=== PATIENT | male | born 1955 | race Caucasian/White ===

== ENCOUNTER 2018-08-09 09:41 | Inpatient (IN) | payer OTHER ==
[2018-08-09 10:35] VITALS: BMI 29.0
--- NOTE | 2018-08-09 11:42 | HP ---
CIWA Score - CIWA Score Nausea/Vomitin-Mild Nausea/No Vomiting Muscle Tremors: 4-Moderate,w/Arms Extend Anxiety: 4-Mod. Anxious/Guarded Agitation: 4-Moderately Restless Paroxysmal Sweats: 1-Minimal Palms Moist Orientation: 0-Oriented Tacttile Disturbances: 0-None Auditory Disturbances: 0-None Visual Disturbances: 0-None Headache: 2-Mild CIWA-Ar Total Score: 16 Admission ROS S - HPI Chief Complaint: Alcohol withdrawal. Allergies/Adverse Reactions: Allergies Allergy/AdvReac Type Severity Reaction Status Date / Time No Known Allergies Allergy Verified 08/09/18 10:49 History of Present Illness: Drinking Alcohol since age 11. Recently released from care home in May, after one year, and started drinking again. Cocaine use began at age 19. Denies hx seizures or blackouts. Hx: HTN, DM, Increased cholesterol, acid reflux. Mental health issues: Insomnia , PTSD, Depression - Sees a MH provider at home. PDMP report negative. Exam Limitations: No Limitations - Ebola screening Have you traveled outside of the country in the last 21 days: No (N) Have you had contact with anyone from an Ebola affected area: No Have you been sick,other than usual withdrawal symptoms: No Do you have a fever: No - Review of Systems Constitutional: Diaphoresis, Changes in sleep (Diffculty fallingasleep) EENT: reports: Blurred Vision (Uses), Tearing (unrelated to situations or allergies), Dental Problems (Missing teeth) Respiratory: reports: No Symptoms reported Cardiac: reports: No Symptoms Reported GI: reports: Indigestion (acid reflux - takes omeprazole but doesn't remember the dose.) : reports: Frequency (3-4 x/night urination) Musculoskeletal: reports: No Symptoms Reported Integumentary: reports: No Symptoms Reported Neuro: reports: Headache, Tremors Endocrine: reports: No Symptoms Reported Hematology: reports: No Symptoms Reported Psychiatric: reports: Judgement Intact, Orientated x3, Agitated, Anxious, Depressed (Denies thoughts of harming self) Patient History - Patient Medical History Hx Asthma: No Hx Chronic Obstructive Pulmonary Disease (COPD): No Hx Cancer: No Hx Cardiac Disorders: No Hx Congestive Heart Failure: No Hx Hypertension: Yes (On meds ) Hx Hypercholesterolemia: Yes (On meds) Hx Pacemaker: No HX Cerebrovascular Accident: No Hx Seizures: No Hx Diabetes: Yes (On meds) Hx Gastrointestinal Disorders: No Hx Liver Disease: No Hx Sexually Transmitted Disorders: Yes (Gonorrhea 2007) Hx Renal Disease (ESRD): No Hx Thyroid Disease: No Hx Human Immunodeficiency Virus (HIV): No (2017) Hx Hepatitis C: No Hx Depression: Yes (Denies thoughts of harming self or others) Other Medical History: PTSD, anxiety - Patient Surgical History Past Surgical History: No - PPD History Previous Implant?: Yes Documented Results: Negative w/o proof Implanted On Prior [facility] Admission?: No PPD to be Administered?: Yes - Smoking Cessation Smoking history: Former smoker Have you smoked in the past 12 months: No Hx Chewing Tobacco Use: No Initiated information on smoking cessation: No - Substance & Tx. History Hx Alcohol Use: Yes Hx Substance Use: Yes Substance Use Type: Alcohol, Cocaine Hx Substance Use Treatment: Yes (detox, rehab) - Substances Abused Alcohol Route: Oral Frequency: Daily Amount used: 2/6PACKS Age of first use: 11 Date of Last Use: 08/09/18 Cocaine Route: Smoking Frequency: 1-2 times per week Amount used: $250 Age of first use: 19 Date of Last Use: 08/09/18 Admission Physical Exam BHS - Vital Signs Vital Signs: Vital Signs - 24 hr 08/09/18 10:33 Temperature 96.7 F L Pulse Rate 95 H Respiratory 19 Rate Blood Pressure 139/84 - Physical General Appearance: Yes: Mild Distress, Tremorous, Irritable, Sweating, Anxious HEENTM: Yes: EOMI, Hearing grossly Normal, Normocephalic, ERVIN Respiratory: Yes: Chest Non-Tender, Lungs Clear, Normal Breath Sounds, No Respiratory Distress Neck: Yes: No masses,lesions,Nodules, Supple Breast: Yes: Breast Exam Deferred Cardiology: Yes: Regular Rhythm, Regular Rate, S1, S2 Abdominal: Yes: Non Tender, Soft, Increased Bowel Sounds Genitourinary: Yes: Frequency (Denies blood or burning) Back: Yes: Normal Inspection Musculoskeletal: Yes: full range of Motion, Gait Steady Extremities: Yes: Normal Capillary Refill, Normal Range of Motion, Non-Tender, Tremors (upon outstretched hands) Neurological: Yes: financial planning adviser II-XII NML intact, Fully Oriented, Alert, Motor Strength 5/5, Normal Mood/Affect, Normal Response Integumentary: Yes: Normal Color, Dry, Warm, Other (Poison Nery like papular lesions on (R) arm) Lymphatic: Yes: Within Normal Limits - Diagnostic (1) Alcohol dependence with uncomplicated withdrawal Current Visit: Yes Status: Acute (2) Cocaine abuse Current Visit: Yes Status: Acute (3) Rash and nonspecific skin eruption Current Visit: Yes Status: Acute (4) Diabetes Current Visit: Yes Status: Acute (5) GERD (gastroesophageal reflux disease) Current Visit: Yes Status: Acute (6) Elevated cholesterol Current Visit: Yes Status: Acute Cleared for Admission [facility] - Detox or Rehab [facility] Level of Care: Medically Managed Detox Regimen/Protocol: Librium [facility] Breath Alcohol Content Breath Alcohol Content: 0.045 Urine Drug Screen - Results Drug Screen Negative: No Urine Drug Screen Results: RIN-Cocaine
[2018-08-09] MEDS ORDERED: MAGNESIUM CITRATE 300 ML BOTTLE PO PRN (12:16)
[2018-08-09] MEDS ORDERED: ACETAMINOPHEN 325 MG TABLET (FP) PO PRN (12:16)
[2018-08-09] MEDS ORDERED: chlordiazePOXIDE HCL 25 MG CAPSULE PO PRN (12:16)
[2018-08-09] MEDS ORDERED: MAG HYDROX/AL HYDROX/SIMETH 30 ML UNIT-DOSE CUP PO PRN (12:16)
[2018-08-09] MEDS ORDERED: chlordiazePOXIDE HCL 25 MG CAPSULE PO ONE (12:16)
[2018-08-09] MEDS ORDERED: guaiFENesin/D-METHORPHAN HB 10 ML UNIT-DOSE CUPS PO PRN (12:16)
[2018-08-09] MEDS ORDERED: MENTHOL/PHENOL 1 EACH UD MM PRN (12:16)
[2018-08-09] MEDS ORDERED: LOPERAMIDE HCL 2 MG CAPSULE PO PRN (12:16)
[2018-08-09] MEDS ORDERED: MAGNESIUM HYDROX 2400MG/30ML ORAL SUSPENSION 30 ML CUP PO PRN (12:16)
[2018-08-09] MEDS ORDERED: P-EPHED 60MG/TRIPROLIDI 2.5MG TABLET PO PRN (12:16)
[2018-08-09] MEDS ORDERED: IBUPROFEN 400 MG TABLET (FP) PO PRN (12:16)
[2018-08-09] MEDS: chlordiazePOXIDE HCL 25 MG CAPSULE PO SCH ×2 (17:09→22:29)
[2018-08-09] MEDS ORDERED: MELATONIN 5 MG TABLETS PO PRN (22:00)
[2018-08-09] MEDS: ATORVASTATIN CA 10 MG TABLET (FP) PO SCH (22:28)
[2018-08-09] MEDS: THIAMINE HCL 100 MG TABLET (FP) PO SCH (22:29)
[2018-08-10 00:49] LABS: URINE APPEARANCE SLCLOUDY; URINE BILIRUBIN NEGATIVE (<2.0 mg/dL); URINE COLOR LTYELLOW; URINE GLUCOSE (UA) NEGATIVE (NEGATIVE); URINE KETONE NEGATIVE (NEGATIVE); URINE LEUK ESTERASE NEGATIVE (NEGATIVE); URINE NITRITE NEGATIVE (NEGATIVE); URINE PROTEIN NEGATIVE (NEGATIVE); URINE UROBILINOGEN NEGATIVE mg/dL (0.2-1.0)
[2018-08-10 00:54] LABS: URINE MUCUS RARE
[2018-08-10] MEDS: chlordiazePOXIDE HCL 25 MG CAPSULE PO SCH ×4 (05:22→22:18)
[2018-08-10] MEDS: metFORMIN HCL 500 MG TABLET (FP) PO SCH (06:24)
--- NOTE | 2018-08-10 08:48 | CONSULT ---
[facility] Psychiatric Consult - Data Date of interview: 08/10/18 Admission source: [facility] Identifying data: Drinking Alcohol since age 11. Recently released from [facility] in May, after one year, and started drinking again. Cocaine use began at age 19. Denies hx seizures or blackouts. Substance Abuse History: Drinking Alcohol since age 11. Recently released from snf in [place], after one year, and started drinking again. Cocaine use began at age 19. Denies hx seizures or blackouts. Medical History: GERD, Hypercholesterolemia, HTN, DM-II Psychiatric History: Patient reports history of anxiety, insomnia, reports most recent psychiatric admission for safety at [facility]. Denies suicidal, homicidal history Physical/Sexual Abuse/Trauma History: Denies Additional Comment: Remerone 15mg po qhs. Vistaril 50mg po qhs Mental Status Exam - Mental Status Exam Alert and Oriented to: Person Cognitive Function: Fair Patient Appearance: Unkempt Mood: Sad Affect: Flat Patient Behavior: Sedated Speech Pattern: Delayed Voice Loudness: Mildly Soft/Quiet Thought Process: Circumstantial Thought Disorder: Being Controlled Hallucinations: Denies Suicidal Ideation: Denies Homicidal Ideation: Denies Insight/Judgement: Fair Sleep: Difficulty falling asleep Appetite: Weight gain Muscle strength/Tone: Mild Hypotonicity Gait/Station: Shuffling Additional Comments: Remerone 15mg po qhs. Vistaril 50mg po qhs Psychiatric Findings - Problem List ([place] 1, 2,3) (1) Alcohol-induced anxiety disorder Current Visit: Yes Status: Acute (2) Alcohol dependence with uncomplicated withdrawal Current Visit: Yes Status: Acute (3) Diabetes Current Visit: Yes Status: Acute Qualifiers: Diabetes mellitus type: type 2 Diabetes mellitus complication status: with hyperglycemia (4) Cocaine abuse Current Visit: Yes Status: Chronic (5) Elevated cholesterol Current Visit: Yes Status: Chronic (6) GERD (gastroesophageal reflux disease) Current Visit: Yes Status: Chronic Qualifiers: Esophagitis presence: esophagitis presence not specified Qualified Code(s) : K21.9 - Gastro-esophageal reflux disease without esophagitis - Initial Treatment Plan Initial Treatment Plan: Remerone 15mg po qhs. Vistaril 50mg po qhs
--- NOTE | 2018-08-10 10:02 | EKG ---
Test Reason : Blood Pressure : / mmHG Vent. Rate : 089 BPM Atrial Rate : 089 BPM P-R Int : 154 ms QRS Dur : 078 ms QT Int : 368 ms P-R-T Axes : 061 073 048 degrees QTc Int : 447 ms NORMAL SINUS RHYTHM NORMAL ECG NO PREVIOUS ECGS AVAILABLE Confirmed by RANJIT MEDEL MD ([id number]) on 08/10/2018 10:02:24 AM Referred By: Confirmed By:RANJIT MEDEL MD
[2018-08-10] MEDS: ASPIRIN 81 MG CHEWABLE TABLETS PO SCH (10:17)
[2018-08-10] MEDS: PRENATAL VITAMINS W/ FOLIC ACID TABLET (FP) PO SCH (10:17)
[2018-08-10] MEDS: PANTOPRAZOLE 20 MG TABLET (FP) PO SCH (10:17)
[2018-08-10 10:33] LABS: HEMATOCRIT 38.9 % (35.4-49); HEMOGLOBIN 12.6 GM/dL (11.7-16.9); MCH 24.8 pg (25.7-33.7); MCHC 32.4 g/dl (32.0-35.9); MEAN CELL VOLUME 76.5 fl (80-96); MEAN PLT VOLUME 9.4 fl (7.5-11.1); PLATELET COUNT 177 K/MM3 (134-434); RBC 5.08 M/mm3 (4.00-5.60)
[2018-08-10 11:05] LABS: CHLORIDE 107 mmol/L (98-107); POTASSIUM 4.1 mmol/L (3.5-5.1); SODIUM 143 mmol/L (136-145)
[2018-08-10 11:24] LABS: ALBUMIN 3.5 g/dl (3.4-5.0); ALK PHOS 84 U/L (45-117); ANION GAP 9 MMOL/L (8-16); BLOOD UREA NITROGEN 14 mg/dL (7-18); CALCIUM 8.4 mg/dL (8.5-10.1); CO2 27 mmol/L (21-32); GLUCOSE,RANDOM 103 mg/dL (74-106); SGOT/AST 42 U/L (15-37); SGPT/ALT 71 U/L (13-61); TOT PROT 6.4 g/dl (6.4-8.2)
--- NOTE | 2018-08-10 17:34 | PN ---
[facility] CIWA - CIWA Score Nausea/Vomitin-Mild Nausea/No Vomiting Muscle Tremors: 3 Anxiety: 4-Mod. Anxious/Guarded Agitation: 3 Paroxysmal Sweats: 1-Minimal Palms Moist Orientation: 0-Oriented Tacttile Disturbances: 1-Very Mild Itch/Numbness Auditory Disturbances: 0-None Visual Disturbances: 0-None Headache: 0-None Present CIWA-Ar Total Score: 13 BHS Progress Note (SOAP) Subjective: sweat tremor anxiety restlessness trouble sleep at night Objective: 08/10/18 17:34 Vital Signs Temperature 97.3 F L 08/10/18 13:11 Pulse Rate 77 08/10/18 13:11 Respiratory Rate 18 08/10/18 13:11 Blood Pressure 119/66 08/10/18 13:11 O2 Sat by Pulse Oximetry (%) Laboratory Last Values WBC 8.0 K/mm3 (4.0-10.0) 08/10/18 08:00 RBC 5.08 M/mm3 (4.00-5.60) 08/10/18 08:00 Hgb 12.6 GM/dL (11.7-16.9) 08/10/18 08:00 Hct 38.9 % (35.4-49) 08/10/18 08:00 MCV 76.5 fl (80-96) L 08/10/18 08:00 MCH 24.8 pg (25.7-33.7) L 08/10/18 08:00 MCHC 32.4 g/dl (32.0-35.9) 08/10/18 08:00 RDW 15.0 % (11.9-15.9) 08/10/18 08:00 Plt Count 177 K/MM3 (134-434) 08/10/18 08:00 MPV 9.4 fl (7.5-11.1) 08/10/18 08:00 Sodium 143 mmol/L (136-145) 08/10/18 08:00 Potassium 4.1 mmol/L (3.5-5.1) 08/10/18 08:00 Chloride 107 mmol/L (98-107) 08/10/18 08:00 Carbon Dioxide 27 mmol/L (21-32) 08/10/18 08:00 Anion Gap 9 MMOL/L (8-16) 08/10/18 08:00 BUN 14 mg/dL (7-18) 08/10/18 08:00 Creatinine 1.0 mg/dL (0.55-1.3) 08/10/18 08:00 Creat Clearance w eGFR > 60 (>60) 08/10/18 08:00 POC Glucometer 124 UNITS (80-120) 08/10/18 16:32 Random Glucose 103 mg/dL (74-106) 08/10/18 08:00 Calcium 8.4 mg/dL (8.5-10.1) L 08/10/18 08:00 Total Bilirubin 1.0 mg/dL (0.2-1.0) 08/10/18 08:00 AST 42 U/L (15-37) H 08/10/18 08:00 ALT 71 U/L (13-61) H 08/10/18 08:00 Alkaline Phosphatase 84 U/L (45-117) 08/10/18 08:00 Total Protein 6.4 g/dl (6.4-8.2) 08/10/18 08:00 Albumin 3.5 g/dl (3.4-5.0) 08/10/18 08:00 Urine Color Ltyellow 08/09/18 23:30 Urine Appearance Slcloudy 08/09/18 23:30 Urine pH 6.0 (5.0-8.0) 08/09/18 23:30 Ur Specific [place] 1.015 (1.001-1.035) 08/09/18 23:30 Urine Protein Negative (NEGATIVE) 08/09/18 23:30 Urine Glucose (UA) Negative (NEGATIVE) 08/09/18 23:30 Urine Ketones Negative (NEGATIVE) 08/09/18 23:30 Urine Blood 1+ (NEGATIVE) H 08/09/18 23:30 Urine Nitrite Negative (NEGATIVE) 08/09/18 23:30 Urine Bilirubin Negative (<2.0 mg/dL) 08/09/18 23:30 Urine Urobilinogen Negative mg/dL (0.2-1.0) 08/09/18 23:30 Ur Leukocyte Esterase Negative (NEGATIVE) 08/09/18 23:30 Urine WBC (Auto) 4 /hpf (3-5) 08/09/18 23:30 Urine RBC (Auto) 1 /hpf (0-3) 08/09/18 23:30 Urine Mucus Rare 08/09/18 23:30 RPR Titer Nonreactive (NONREACTIVE) 08/10/18 08:00 lab noted Assessment: 08/10/18 17:35 withdrawal sx Plan: continue detox
[2018-08-10] MEDS: ATORVASTATIN CA 10 MG TABLET (FP) PO SCH (22:18)
[2018-08-10] MEDS: MIRTAZAPINE 15 MG TABLET (FP) PO SCH (22:18)
[2018-08-10] MEDS: hydrOXYzine PAMOATE 50 MG CAPSULE (FP) PO SCH (22:18)
[2018-08-10] MEDS: THIAMINE HCL 100 MG TABLET (FP) PO SCH (22:18)
[2018-08-11] MEDS: metFORMIN HCL 500 MG TABLET (FP) PO SCH (07:32)
[2018-08-11] MEDS: chlordiazePOXIDE HCL 25 MG CAPSULE PO SCH ×2 (07:37→10:52)
[2018-08-11] MEDS: ASPIRIN 81 MG CHEWABLE TABLETS PO SCH (10:51)
[2018-08-11] MEDS: PANTOPRAZOLE 20 MG TABLET (FP) PO SCH (10:51)
[2018-08-11] MEDS: PRENATAL VITAMINS W/ FOLIC ACID TABLET (FP) PO SCH (10:52)
--- NOTE | 2018-08-11 16:31 | PN ---
S CIWA - CIWA Score Nausea/Vomitin-No Nausea/No Vomiting Muscle Tremors: 3 Anxiety: 2 Agitation: 2 Paroxysmal Sweats: 1-Minimal Palms Moist Orientation: 0-Oriented Tacttile Disturbances: 1-Very Mild Itch/Numbness Auditory Disturbances: 0-None Visual Disturbances: 0-None Headache: 1-Very Mild CIWA-Ar Total Score: 10 S Progress Note (SOAP) Subjective: sweat tremor restlessness Objective: 08/11/18 16:30 Vital Signs Temperature 98.2 F 08/11/18 13:55 Pulse Rate 121 H 08/11/18 13:55 Respiratory Rate 18 08/11/18 13:55 Blood Pressure 139/70 08/11/18 13:55 O2 Sat by Pulse Oximetry (%) Laboratory Last Values WBC 8.0 K/mm3 (4.0-10.0) 08/10/18 08:00 RBC 5.08 M/mm3 (4.00-5.60) 08/10/18 08:00 Hgb 12.6 GM/dL (11.7-16.9) 08/10/18 08:00 Hct 38.9 % (35.4-49) 08/10/18 08:00 MCV 76.5 fl (80-96) L 08/10/18 08:00 MCH 24.8 pg (25.7-33.7) L 08/10/18 08:00 MCHC 32.4 g/dl (32.0-35.9) 08/10/18 08:00 RDW 15.0 % (11.9-15.9) 08/10/18 08:00 Plt Count 177 K/MM3 (134-434) 08/10/18 08:00 MPV 9.4 fl (7.5-11.1) 08/10/18 08:00 Sodium 143 mmol/L (136-145) 08/10/18 08:00 Potassium 4.1 mmol/L (3.5-5.1) 08/10/18 08:00 Chloride 107 mmol/L (98-107) 08/10/18 08:00 Carbon Dioxide 27 mmol/L (21-32) 08/10/18 08:00 Anion Gap 9 MMOL/L (8-16) 08/10/18 08:00 BUN 14 mg/dL (7-18) 08/10/18 08:00 Creatinine 1.0 mg/dL (0.55-1.3) 08/10/18 08:00 Creat Clearance w eGFR > 60 (>60) 08/10/18 08:00 POC Glucometer 104 UNITS (80-120) 08/11/18 07:31 Random Glucose 103 mg/dL (74-106) 08/10/18 08:00 Calcium 8.4 mg/dL (8.5-10.1) L 08/10/18 08:00 Total Bilirubin 1.0 mg/dL (0.2-1.0) 08/10/18 08:00 AST 42 U/L (15-37) H 08/10/18 08:00 ALT 71 U/L (13-61) H 08/10/18 08:00 Alkaline Phosphatase 84 U/L (45-117) 08/10/18 08:00 Total Protein 6.4 g/dl (6.4-8.2) 08/10/18 08:00 Albumin 3.5 g/dl (3.4-5.0) 08/10/18 08:00 Urine Color Ltyellow 08/09/18 23:30 Urine Appearance Slcloudy 08/09/18 23:30 Urine pH 6.0 (5.0-8.0) 08/09/18 23:30 Ur Specific [place] 1.015 (1.001-1.035) 08/09/18 23:30 Urine Protein Negative (NEGATIVE) 08/09/18 23:30 Urine Glucose (UA) Negative (NEGATIVE) 08/09/18 23:30 Urine Ketones Negative (NEGATIVE) 08/09/18 23:30 Urine Blood 1+ (NEGATIVE) H 08/09/18 23:30 Urine Nitrite Negative (NEGATIVE) 08/09/18 23:30 Urine Bilirubin Negative (<2.0 mg/dL) 08/09/18 23:30 Urine Urobilinogen Negative mg/dL (0.2-1.0) 08/09/18 23:30 Ur Leukocyte Esterase Negative (NEGATIVE) 08/09/18 23:30 Urine WBC (Auto) 4 /hpf (3-5) 08/09/18 23:30 Urine RBC (Auto) 1 /hpf (0-3) 08/09/18 23:30 Urine Mucus Rare 08/09/18 23:30 RPR Titer Nonreactive (NONREACTIVE) 08/10/18 08:00 lab noted Assessment: 08/11/18 16:30 withdrawal sx Plan: continue detox
[2018-08-11] MEDS: chlordiazePOXIDE 5 MG CAPSULE PO SCH ×2 (17:33→22:26)
[2018-08-11] MEDS: THIAMINE HCL 100 MG TABLET (FP) PO SCH (22:26)
[2018-08-11] MEDS: hydrOXYzine PAMOATE 50 MG CAPSULE (FP) PO SCH (22:27)
[2018-08-11] MEDS: ATORVASTATIN CA 10 MG TABLET (FP) PO SCH (22:27)
[2018-08-11] MEDS: MIRTAZAPINE 15 MG TABLET (FP) PO SCH (22:27)
[2018-08-12] MEDS: chlordiazePOXIDE 5 MG CAPSULE PO SCH ×2 (06:00→10:04)
[2018-08-12] MEDS: metFORMIN HCL 500 MG TABLET (FP) PO SCH (08:00)
[2018-08-12] MEDS: PRENATAL VITAMINS W/ FOLIC ACID TABLET (FP) PO SCH (10:03)
[2018-08-12] MEDS: PANTOPRAZOLE 20 MG TABLET (FP) PO SCH (10:04)
[2018-08-12] MEDS: ASPIRIN 81 MG CHEWABLE TABLETS PO SCH (10:04)
--- NOTE | 2018-08-12 13:36 | PN ---
S Progress Note (SOAP) Subjective: C/o mild tremors, otherwise I'm feeling a lot better. Objective: A&O x 3. Mild tremors felt in hands. Vital Signs 08/12/18 08/12/18 09:47 14:15 Temperature 97.1 F L 98.2 F Pulse Rate 84 123 H Respiratory 16 18 Rate Blood Pressure 136/75 135/83 Lab Results WBC 8.0 K/mm3 (4.0-10.0) 08/10/18 08:00 RBC 5.08 M/mm3 (4.00-5.60) 08/10/18 08:00 Hgb 12.6 GM/dL (11.7-16.9) 08/10/18 08:00 Hct 38.9 % (35.4-49) 08/10/18 08:00 MCV 76.5 fl (80-96) L 08/10/18 08:00 MCHC 32.4 g/dl (32.0-35.9) 08/10/18 08:00 RDW 15.0 % (11.9-15.9) 08/10/18 08:00 Plt Count 177 K/MM3 (134-434) 08/10/18 08:00 Sodium 143 mmol/L (136-145) 08/10/18 08:00 Potassium 4.1 mmol/L (3.5-5.1) 08/10/18 08:00 Chloride 107 mmol/L (98-107) 08/10/18 08:00 Carbon Dioxide 27 mmol/L (21-32) 08/10/18 08:00 Anion Gap 9 MMOL/L (8-16) 08/10/18 08:00 BUN 14 mg/dL (7-18) 08/10/18 08:00 Creatinine 1.0 mg/dL (0.55-1.3) 08/10/18 08:00 Random Glucose 103 mg/dL (74-106) 08/10/18 08:00 Calcium 8.4 mg/dL (8.5-10.1) L 08/10/18 08:00 Labs reviewed. Assessment: Withdrawal symptoms. Plan: Continue detox
[2018-08-12] MEDS: chlordiazePOXIDE HCL 10 MG CAPSULE PO SCH ×2 (18:27→22:30)
[2018-08-12] MEDS: ATORVASTATIN CA 10 MG TABLET (FP) PO SCH (22:29)
[2018-08-12] MEDS: THIAMINE HCL 100 MG TABLET (FP) PO SCH (22:29)
[2018-08-12] MEDS: hydrOXYzine PAMOATE 50 MG CAPSULE (FP) PO SCH (22:30)
[2018-08-12] MEDS: MIRTAZAPINE 15 MG TABLET (FP) PO SCH (22:30)
[2018-08-13] MEDS: chlordiazePOXIDE HCL 10 MG CAPSULE PO SCH ×2 (06:35→11:06)
[2018-08-13] MEDS: metFORMIN HCL 500 MG TABLET (FP) PO SCH (07:55)
[2018-08-13] MEDS: PRENATAL VITAMINS W/ FOLIC ACID TABLET (FP) PO SCH (11:04)
[2018-08-13] MEDS: PANTOPRAZOLE 20 MG TABLET (FP) PO SCH (11:04)
[2018-08-13] MEDS: ASPIRIN 81 MG CHEWABLE TABLETS PO SCH (11:04)
[2018-08-13 13:49] VITALS: BP 120/60; PULSE 77; TEMP 97.5
--- NOTE | 2018-08-13 16:43 | DS ---
[facility] Detox Discharge Summary Admission Date: 08/09/18 Discharge Date: 08/13/18 - History Present History: Alcohol Dependence - Physical Exam Results Vital Signs: Vital Signs Temperature 97.5 F L 08/13/18 13:42 Pulse Rate 77 08/13/18 13:42 Respiratory Rate 18 08/13/18 13:42 Blood Pressure 120/60 08/13/18 13:42 O2 Sat by Pulse Oximetry (%) Pertinent Admission Physical Exam Findings: alcohol withdrawal sx Vital Signs Temperature 97.5 F L 08/13/18 13:42 Pulse Rate 77 08/13/18 13:42 Respiratory Rate 18 08/13/18 13:42 Blood Pressure 120/60 08/13/18 13:42 O2 Sat by Pulse Oximetry (%) Laboratory Last Values WBC 8.0 K/mm3 (4.0-10.0) 08/10/18 08:00 RBC 5.08 M/mm3 (4.00-5.60) 08/10/18 08:00 Hgb 12.6 GM/dL (11.7-16.9) 08/10/18 08:00 Hct 38.9 % (35.4-49) 08/10/18 08:00 MCV 76.5 fl (80-96) L 08/10/18 08:00 MCH 24.8 pg (25.7-33.7) L 08/10/18 08:00 MCHC 32.4 g/dl (32.0-35.9) 08/10/18 08:00 RDW 15.0 % (11.9-15.9) 08/10/18 08:00 Plt Count 177 K/MM3 (134-434) 08/10/18 08:00 MPV 9.4 fl (7.5-11.1) 08/10/18 08:00 Sodium 143 mmol/L (136-145) 08/10/18 08:00 Potassium 4.1 mmol/L (3.5-5.1) 08/10/18 08:00 Chloride 107 mmol/L (98-107) 08/10/18 08:00 Carbon Dioxide 27 mmol/L (21-32) 08/10/18 08:00 Anion Gap 9 MMOL/L (8-16) 08/10/18 08:00 BUN 14 mg/dL (7-18) 08/10/18 08:00 Creatinine 1.0 mg/dL (0.55-1.3) 08/10/18 08:00 Creat Clearance w eGFR > 60 (>60) 08/10/18 08:00 POC Glucometer 121 UNITS (80-120) 08/13/18 06:39 Random Glucose 103 mg/dL (74-106) 08/10/18 08:00 Calcium 8.4 mg/dL (8.5-10.1) L 08/10/18 08:00 Total Bilirubin 1.0 mg/dL (0.2-1.0) 08/10/18 08:00 AST 42 U/L (15-37) H 08/10/18 08:00 ALT 71 U/L (13-61) H 08/10/18 08:00 Alkaline Phosphatase 84 U/L (45-117) 08/10/18 08:00 Total Protein 6.4 g/dl (6.4-8.2) 08/10/18 08:00 Albumin 3.5 g/dl (3.4-5.0) 08/10/18 08:00 Urine Color Ltyellow 08/09/18 23:30 Urine Appearance Slcloudy 08/09/18 23:30 Urine pH 6.0 (5.0-8.0) 08/09/18 23:30 Ur Specific [place] 1.015 (1.001-1.035) 08/09/18 23:30 Urine Protein Negative (NEGATIVE) 08/09/18 23:30 Urine Glucose (UA) Negative (NEGATIVE) 08/09/18 23:30 Urine Ketones Negative (NEGATIVE) 08/09/18 23:30 Urine Blood 1+ (NEGATIVE) H 08/09/18 23:30 Urine Nitrite Negative (NEGATIVE) 08/09/18 23:30 Urine Bilirubin Negative (<2.0 mg/dL) 08/09/18 23:30 Urine Urobilinogen Negative mg/dL (0.2-1.0) 08/09/18 23:30 Ur Leukocyte Esterase Negative (NEGATIVE) 08/09/18 23:30 Urine WBC (Auto) 4 /hpf (3-5) 08/09/18 23:30 Urine RBC (Auto) 1 /hpf (0-3) 08/09/18 23:30 Urine Mucus Rare 08/09/18 23:30 RPR Titer Nonreactive (NONREACTIVE) 08/10/18 08:00 lab noted - Treatment Hospital Course: Detox Protocol Followed, Detoxed Safely, Responded well, Discharged Condition Good, Rehab Referral Accepted Patient has Accepted a Rehab Referral to: [facility] - Medication Discharge Medications: Ambulatory Orders Aspirin [Children's Aspirin] 81 mg PO DAILY 08/09/18 Omeprazole 20 mg PO DAILY 08/09/18 Mirtazapine [Remeron -] 15 mg PO HS #30 tablet 08/10/18 hydrOXYzine PAMOATE [Vistaril -] 50 mg PO HS #30 capsule 08/10/18 Atorvastatin Ca [Lipitor] 10 mg PO HS #30 tablet 08/13/18 Metformin HCl [Glucophage] 1,000 mg PO DAILY #30 tablet 08/13/18 - Diagnosis (1) Alcohol dependence with uncomplicated withdrawal Status: Acute (2) Diabetes Status: Chronic Qualifiers: Diabetes mellitus type: type 2 Diabetes mellitus complication status: with hyperglycemia (3) GERD (gastroesophageal reflux disease) Status: Chronic Qualifiers: Esophagitis presence: esophagitis presence not specified Qualified Code(s) : K21.9 - Gastro-esophageal reflux disease without esophagitis - AMA Did Patient Leave Against Medical Advice: No
== END 2018-08-13 15:00 | disposition other institution (70) | DRG 774 ==
LOC: YASAS 09:41 → Y6N 12:38
PROC: HZ2ZZZZ Detoxification Services for Substance Abuse Treatment (ICD-10-PCS; principal; 2018-08-09)
DX: F10.230 Alcohol dependence with withdrawal, uncomplicated (principal); F14.10 Cocaine abuse, uncomplicated; F10.280 Alcohol dependence with alcohol-induced anxiety disorder; F10.24 Alcohol dependence with alcohol-induced mood disorder; F41.9 Anxiety disorder, unspecified; F43.10 Post-traumatic stress disorder, unspecified; I10 Essential (primary) hypertension; E11.65 Type 2 diabetes mellitus with hyperglycemia; Z79.84 Long term (current) use of oral hypoglycemic drugs; E78.00 Pure hypercholesterolemia, unspecified; K21.9 Gastro-esophageal reflux disease without esophagitis; R21 Rash and other nonspecific skin eruption; Z86.19 Personal history of other infectious and parasitic diseases
CPT/HCPCS: 36415; 80053; 81003; 81015; 82962; 85027; 86593; 93005; 93010

== ENCOUNTER 2018-08-13 15:24 | Inpatient (IN) | payer OTHER ==
[2018-08-13] MEDS ORDERED: NICOTINE 14 MG/24 HOURS TOPICAL PATCH TD PRN (15:43)
[2018-08-13] MEDS ORDERED: NICOTINE POLACRILEX 2 MG GUM BUC PRN (15:43)
[2018-08-13] MEDS ORDERED: MAG HYDROX/AL HYDROX/SIMETH 30 ML UNIT-DOSE CUP PO PRN (15:43)
[2018-08-13] MEDS ORDERED: guaiFENesin/D-METHORPHAN HB 10 ML UNIT-DOSE CUPS PO PRN (15:43)
[2018-08-13] MEDS ORDERED: MAGNESIUM HYDROX 2400MG/30ML ORAL SUSPENSION 30 ML CUP PO PRN (15:43)
[2018-08-13] MEDS ORDERED: IBUPROFEN 400 MG TABLET (FP) PO PRN (15:43)
[2018-08-13] MEDS ORDERED: MENTHOL/PHENOL 1 EACH UD MM PRN (15:43)
[2018-08-13] MEDS ORDERED: ACETAMINOPHEN 325 MG TABLET (FP) PO PRN (15:43)
[2018-08-13] MEDS ORDERED: P-EPHED 60MG/TRIPROLIDI 2.5MG TABLET PO PRN (15:43)
[2018-08-13] MEDS ORDERED: MAGNESIUM CITRATE 300 ML BOTTLE PO PRN (15:43)
--- NOTE | 2018-08-13 15:43 | HP ---
[facility] Rehab Assess/Revision - Admission History Admitted to Rehab from: [facility] Date of Admission to Rehab: 08/13/18 - Findings Detox History & Physical reviewed: Yes Concur with findings: Yes Comments/Additional Findings: transferred from detox to rehab admission as per protocol Inpatient Rehab Admission - Initial Determination Are CD services needed?: Yes Free of communicable disease: Yes Not in need of hospitalization: Yes - Rehab Admission Criteria Previous failed treatment: Yes Poor recovery environment: Yes Comorbidities: Yes Lacks judgement: No Patient is meeting Inpatient Rehab admission criteria:: Yes
--- NOTE | 2018-08-13 19:46 | PN ---
Jean Progress Note Note: Psychiatric nurse practitioner lithopone charger note: Call received by RN requesting patient's medications. Chart reviewed. Dr. Magaña's note read and appreciated. Mirtzapine 15mg qhs + Vistaril 50mg qhs ordered.
[2018-08-13] MEDS: MIRTAZAPINE 15 MG TABLET (FP) PO SCH (21:47)
[2018-08-13] MEDS: hydrOXYzine PAMOATE 50 MG CAPSULE (FP) PO SCH (21:47)
[2018-08-13] MEDS: THIAMINE HCL 100 MG TABLET (FP) PO SCH (21:47)
[2018-08-13] MEDS: ATORVASTATIN CA 10 MG TABLET (FP) PO SCH (21:48)
[2018-08-13] MEDS ORDERED: MELATONIN 5 MG TABLETS PO PRN (22:00)
[2018-08-14] MEDS: metFORMIN HCL 500 MG TABLET (FP) PO SCH (06:31)
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
[2018-08-14] MEDS: PRENATAL VITAMINS W/ FOLIC ACID TABLET (FP) PO SCH (10:03)
[2018-08-14] MEDS: ASPIRIN 81 MG CHEWABLE TABLETS PO SCH (10:03)
[2018-08-14] MEDS: PANTOPRAZOLE 20 MG TABLET (FP) PO SCH (16:43)
[2018-08-14] MEDS: ATORVASTATIN CA 10 MG TABLET (FP) PO SCH (22:15)
[2018-08-14] MEDS: THIAMINE HCL 100 MG TABLET (FP) PO SCH (22:15)
[2018-08-14] MEDS: MIRTAZAPINE 15 MG TABLET (FP) PO SCH (22:15)
[2018-08-14] MEDS: hydrOXYzine PAMOATE 50 MG CAPSULE (FP) PO SCH (22:15)
[2018-08-15] MEDS: metFORMIN HCL 500 MG TABLET (FP) PO SCH (06:45)
[2018-08-15] MEDS: PRENATAL VITAMINS W/ FOLIC ACID TABLET (FP) PO SCH (10:07)
[2018-08-15] MEDS: LOPERAMIDE HCL 2 MG CAPSULE PO PRN (10:07)
[2018-08-15] MEDS: PANTOPRAZOLE 20 MG TABLET (FP) PO SCH (10:07)
[2018-08-15] MEDS: ASPIRIN 81 MG CHEWABLE TABLETS PO SCH (10:07)
[2018-08-15] MEDS: hydrOXYzine PAMOATE 50 MG CAPSULE (FP) PO SCH (22:20)
[2018-08-15] MEDS: ATORVASTATIN CA 10 MG TABLET (FP) PO SCH (22:20)
[2018-08-15] MEDS: THIAMINE HCL 100 MG TABLET (FP) PO SCH (22:20)
[2018-08-15] MEDS: MIRTAZAPINE 15 MG TABLET (FP) PO SCH (22:20)
[2018-08-16] MEDS: LOPERAMIDE HCL 2 MG CAPSULE PO PRN (01:49)
[2018-08-16] MEDS: metFORMIN HCL 500 MG TABLET (FP) PO SCH (07:24)
[2018-08-16 08:12] VITALS: BP 144/87; PULSE 113; TEMP 97.7
--- NOTE | 2018-08-16 08:33 | PN ---
[facility] Progress Note Note: ASKED TO SEE CLIENT FOR C/O WORSENING ABD PAIN. CLIENT REPORTS DIARRHEA X 2 DAYS NOW THAT IS PROGRESSIVELY GETTING WORSE WITH ABD PAIN/CRAMPS. REPORTS AT LEAST 15 EPISODES OF DIARRHEA ( UNWITNESSED BY STAFF)IN THE PAST 8 HOURS NOT RELIEVED WITH IMMODIUM. DENIES FEVER, CHILLS, SOB. GEN- CLIENT SEEN LYING IN BED IN MODERATE DISTRESS MOANING TOSSING AND TURNING IN BED REQUESTING TO GO TO THE HOSPITAL ABD- GROSSLY DISTENDED , HYPO ACTIVE BS WITH DIFFUSE ABD PAIN Last Vital Signs Temp Pulse Resp BP Pulse Ox 97.7 F 113 H 18 144/87 08/16/18 08:11 08/16/18 08:11 08/16/18 08:11 08/16/18 08:11 LABS FROM DETOX NOTED ABD PAIN 63 Y.O. MALE WITH HX/O DM, GERD, ALCOHOL AND COCAINE DEPENDENCE HERE FOR INPATIENT REHAB AFTER COMPLETING DETOX P- TRANSFER TO [facility] ER FOR EVAL CASE D/W- ENDORSED TO DR. MAGANA
[2018-08-16] MEDS: ASPIRIN 81 MG CHEWABLE TABLETS PO SCH (10:13)
[2018-08-16] MEDS: PRENATAL VITAMINS W/ FOLIC ACID TABLET (FP) PO SCH (10:13)
[2018-08-16] MEDS: PANTOPRAZOLE 20 MG TABLET (FP) PO SCH (10:13)
== END 2018-08-16 15:20 | disposition short-term general hospital (02) | DRG 772 ==
LOC: YASAS 15:24 → Y3W 15:25
PROVIDERS: ADMIT Psychiatry & Neurology Psychiatry; ATTEND Psychiatry & Neurology Psychiatry
PROC: HZ42ZZZ Group Counseling for Substance Abuse Treatment, Cognitive-Behavioral (ICD-10-PCS; principal; 2018-08-13)
DX: F10.20 Alcohol dependence, uncomplicated (principal); F33.1 Major depressive disorder, recurrent, moderate; F43.10 Post-traumatic stress disorder, unspecified; E11.65 Type 2 diabetes mellitus with hyperglycemia; E78.5 Hyperlipidemia, unspecified; I10 Essential (primary) hypertension; K21.9 Gastro-esophageal reflux disease without esophagitis; Z59.0 Homelessness; Z79.84 Long term (current) use of oral hypoglycemic drugs
CPT/HCPCS: 82962

== ENCOUNTER 2018-08-16 08:55 | Inpatient (IN) | payer OTHER ==
[2018-08-16 09:03] VITALS: BMI 29.2
[2018-08-16] MEDS ORDERED: SODIUM CHLORIDE 1,000 ML IV STA ×5 (09:34→16:46)
[2018-08-16 10:02] LABS: BASO % 0.4 % (0-2.0); EOS % 0.3 % (0-4.5); HEMATOCRIT 48.6 % (35.4-49); HEMOGLOBIN 15.5 GM/dL (11.7-16.9); LYMPH % 8.4 % (8-40); MCH 24.7 pg (25.7-33.7); MCHC 31.9 g/dl (32.0-35.9); MEAN CELL VOLUME 77.3 fl (80-96); MEAN PLT VOLUME 9.6 fl (7.5-11.1); MONO % 3.6 % (3.8-10.2); NEUT % 87.3 % (42.8-82.8); PLATELET COUNT 263 K/MM3 (134-434); RDW 15.3 % (11.9-15.9); WHITE BLOOD COUNT 16.1 K/mm3 (4.0-10.0)
--- NOTE | 2018-08-16 10:18 | PDOC ---
History of Present Illness <Dick Leija - Last Filed: 08/16/18 11:49> - General History Source: Patient Exam Limitations: No Limitations - History of Present Illness Travel History: No Initial Comments: 08/16/18 10:18 63-year-old male with history of heroin, alcohol use, hypertension and recent incarceration presents the emergency room with complaints of generalized abdominal pain for the past few days worsening in severity associated brown watery diarrhea for the past 2 days. Patient currently completed detox program at [facility]. He denies fever, chills, nausea, vomiting, headache, chest pain or shortness of breath. Timing/Duration: reports: constant, getting worse Quality: reports: moderate, cramping, sharpness Abdominal Pain Onset Location: reports: generalized abdomen Pain Radiation: reports: no radiation Activities at Onset: reports: none Treatment Prior to Arrive: improves with: analgesics Aggravating Factors: improves with: None Alleviating Factors: improves with: None <Bernie Ham - Last Filed: 08/16/18 13:30> - General Chief Complaint: Pain Stated Complaint: ABD PAIN Time Seen by Provider: 08/16/18 09:03 Past History <Dick Leija - Last Filed: 08/16/18 11:49> - Travel Close contact w/someone who was outside of country & ill: No - Past Medical History Asthma: No Cancer: No Cardiac Disorders: No CVA: No COPD: No CHF: No Diabetes: Yes GI Disorders: No Disorders: No HTN: Yes Hypercholesterolemia: Yes (On meds) Kidney Stones: No Liver Disease: No Seizures: No Thyroid Disease: No - Reproductive History Testicular Surgery: No - Suicide/Smoking/Psychosocial Hx Smoking History: Unknown if ever smoked Have you smoked in the past 12 months: No Hx Alcohol Use: No Drug/Substance Use Hx: No Substance Use Type: Alcohol (Started drinking beer at age 11, consumes 2x 6pk of beer daily. Last drank on 08/09/18), Cocaine (Started smoking crack cocaine at age 19, consumes $250 worth 1-2 times weekly. Last smoked on 08/09/18) Hx Substance Use Treatment: Yes (2 previous inpt detox & 3 inpt rehab admissions ) Patient Lives Alone: No <Bernie Ham - Last Filed: 08/16/18 13:30> - Past Medical History Allergies/Adverse Reactions: Allergies Allergy/AdvReac Type Severity Reaction Status Date / Time No Known Allergies Allergy Verified 08/16/18 08:58 Home Medications: Ambulatory Orders Aspirin [Children's Aspirin] 81 mg PO DAILY 08/09/18 Omeprazole 20 mg PO DAILY 08/09/18 Mirtazapine [Remeron -] 15 mg PO HS #30 tablet 08/10/18 hydrOXYzine PAMOATE [Vistaril -] 50 mg PO HS #30 capsule 08/10/18 Atorvastatin Ca [Lipitor] 10 mg PO HS #30 tablet 08/13/18 Metformin HCl [Glucophage] 1,000 mg PO DAILY #30 tablet 08/13/18 Abd/GI Specific PMHX - Complaint Specific PMHX Hepatitis: No Pancreatitis: No <Bernie Ham - Last Filed: 08/16/18 13:30> Review of Systems - Review of Systems Able to Perform ROS?: No Constitutional: No: Symptoms Reported HEENTM: No: Symptoms Reported Respiratory: No: Symptoms reported Cardiac (ROS): No: Symptoms Reported ABD/GI: Yes: Abdominal Distended, Diarrhea, Poor Appetite, Poor Fluid Intake, Abdominal cramping. No: Nausea, Vomiting Integumentary: No: Symptoms Reported Neurological: No: Symptoms reported Hematologic/Lymphatic: No: Symptoms Reported <Bernie Ham - Last Filed: 08/16/18 13:30> *Physical Exam - Vital Signs Last Vital Signs Temp Pulse Resp BP Pulse Ox 99 F 113 H 19 121/82 96 08/16/18 09:15 08/16/18 10:05 08/16/18 10:05 08/16/18 10:05 08/16/18 10:05 <Dick Leija - Last Filed: 08/16/18 11:49> - Vital Signs Last Vital Signs Temp Pulse Resp BP Pulse Ox 99 F 113 H 19 121/82 96 08/16/18 09:15 08/16/18 10:05 08/16/18 10:05 08/16/18 10:05 08/16/18 10:05 - Physical Exam General Appearance: Yes: Nourished, Appropriately Dressed. No: Apparent Distress HEENT: positive: EOMI, ERVIN, TMs Normal, Pharynx Normal. negative: Pale Conjunctivae Neck: positive: Supple Respiratory/Chest: positive: Lungs Clear, Normal Breath Sounds. negative: Respiratory Distress, Accessory Muscle Use Cardiovascular: positive: Regular Rhythm, Tachycardia. negative: Murmur Gastrointestinal/Abdominal: positive: Soft, Decreased BS (4), Distended, Tenderness ( generalized) Musculoskeletal: negative: CVA Tenderness Extremity: positive: Normal Capillary Refill. negative: Pedal Edema Integumentary: positive: Normal Color, Warm, Moist Neurologic: positive: Motor Strength 5/5 <Bernie Ham - Last Filed: 08/16/18 13:30> Heart Score/ECG Review - History History: Slightly suspicious - Electrocardiogram EKG: Normal - Age Age: 45-65 - Risk Factors Risk Factors Heart Score: Yes Hx Hypertension, Yes Smoking History Based on the list above the patient has:: 1-2 risk factors - Troponin Troponin: </= normal limit - Score Heart Score - Total: 2 - ECG Intrepretation Rhythm: Regular Rhythm (sinus tachycardia at 113.[place] ac. Inverted T waves in lead 3. No previous for comparison) <Bernie Ham - Last Filed: 08/16/18 13:30> ED Treatment Course - LABORATORY CBC & Chemistry Diagram: 08/16/18 09:45 08/16/18 09:45 - ADDITIONAL ORDERS Additional order review: Laboratory Results 08/16/18 08/16/18 08/16/18 09:45 09:45 09:45 Sodium 142 Potassium 4.9 Chloride 107 Carbon Dioxide 25 Anion Gap 11 BUN 16 Creatinine 1.5 H Creat Clearance w eGFR 47.42 Random Glucose 155 H Lactic Acid 3.3 H* Calcium 10.0 Magnesium 1.8 Total Bilirubin 0.8 AST 100 H ALT 139 H Alkaline Phosphatase 124 H Creatine Kinase Cancelled 101 Troponin I Cancelled < 0.02 Total Protein 8.7 H Albumin 4.6 Lipase 90 08/16/18 09:45 RBC 6.30 H MCV 77.3 L MCHC 31.9 L RDW 15.3 MPV 9.6 Neutrophils % 87.3 H Lymphocytes % 8.4 Monocytes % 3.6 L Eosinophils % 0.3 Basophils % 0.4 - RADIOLOGY Radiology Studies Ordered: Category Date Time Status ABDOMEN & PELVIS CT WITH CONTR [CT] Stat CT Scan 08/16/18 10:07 Ordered - Medications Given in the ED: ED Medications Discontinued Medications Generic Name Dose Route Start Last Admin Trade Name Freq PRN Reason Stop Dose Admin Sodium Chloride 1,000 mls @ 1,000 mls/hr 08/16/18 09:34 08/16/18 09:37 Normal Saline - IV 08/16/18 10:33 1,000 mls/hr ASDIR STA Administration Ondansetron HCl 4 mg 08/16/18 10:47 08/16/18 11:04 Zofran Injection IVPUSH 08/16/18 10:48 4 mg ONCE ONE Administration <Dick Leija - Last Filed: 08/16/18 11:49> - LABORATORY CBC & Chemistry Diagram: 08/16/18 09:45 08/16/18 09:45 - ADDITIONAL ORDERS Additional order review: Laboratory Results 08/16/18 09:45 Creatine Kinase Cancelled Troponin I Cancelled 08/16/18 09:45 RBC 6.30 H MCV 77.3 L MCHC 31.9 L RDW 15.3 MPV 9.6 Neutrophils % 87.3 H Lymphocytes % 8.4 Monocytes % 3.6 L Eosinophils % 0.3 Basophils % 0.4 - RADIOLOGY Radiology Studies Ordered: Category Date Time Status ABDOMEN & PELVIS CT WITH CONTR [CT] Stat CT Scan 08/16/18 10:07 Ordered ABDOMEN FLAT & UPRIGHT [RAD] Stat Radiology 08/16/18 09:33 Taken CHEST PA & LAT [RAD] Stat Radiology 08/16/18 09:33 Taken <Bernie Ham - Last Filed: 08/16/18 13:30> Medical Decision Making - Medical Decision Making 08/16/18 11:49 Cr 1.[address] with IV contrast <Dick Leija - Last Filed: 08/16/18 11:49> - Medical Decision Making 08/16/18 10:00 Patient presents with abdominal pain and diarrhea for the past few days. Patient currently at [facility] for detox from heroin and alcohol. Patient exam with abdominal distention and denies cirrhosis despite alcohol abuse. Patient concerning for SBO, constipation, cirrhosis, perforation, diverticulosis, pancreatitis, cholecystitis, and electrolyte derangement. Patient ordered for labs including lactic acid, urine, cardiac profile and EKG. Patient was ordered for CT of the abdomen to follow his flat and upright. 08/16/18 12:06 upright abdominal xray shows small bowel obstruction with paucity of gas in the colon. Surgical evaluation is recommended. Consider correlation with CT. No evidence of acute infiltrate or pleural effusion. Laboratory Tests 08/16/18 08/16/18 09:45 09:45 Sodium 142 Potassium 4.9 Chloride 107 Carbon Dioxide 25 Anion Gap 11 BUN 16 Creatinine 1.5 H Creat Clearance w eGFR 47.42 Random Glucose 155 H Lactic Acid 3.3 H* Calcium 10.0 Magnesium 1.8 Total Bilirubin 0.8 AST 100 H ALT 139 H Alkaline Phosphatase 124 H Creatine Kinase 101 Troponin I < 0.02 Total Protein 8.7 H Albumin 4.6 Lipase 90 08/16/18 12:46 Patient ordered for second liter of normal saline. Patient's rectal temperature does not demonstrate fever. Patient ordered for blood cultures, Zosyn for broad- spectrum antibiotic coverage for possible ischemia, coags and type and screen added. Patient not currently vomiting so will allow palpation of the CT without NG tube placement. 08/16/18 13:22 Surgery here for consultation. He recommends IV fluids, nothing by mouth and no NG tube at this time. He recommends admission and will consult again shortly to evaluate if fthis patient is requiring surgery versus medical management. <Bernie Ham - Last Filed: 08/16/18 13:30> *DC/Admit/Observation/Transfer <Dick Leija - Last Filed: 08/16/18 11:49> - Discharge Dispostion Decision to Admit order: Yes <Bernie Ham - Last Filed: 08/16/18 13:30> Diagnosis at time of Disposition: Bowel obstruction, Sepsis
[2018-08-16 10:32] LABS: ALBUMIN 4.6 g/dl (3.4-5.0); ALK PHOS 124 U/L (45-117); ANION GAP 11 MMOL/L (8-16); BILIRUBIN,TOTAL 0.8 mg/dL (0.2-1); BLOOD UREA NITROGEN 16 mg/dL (7-18); CHLORIDE 107 mmol/L (98-107); CO2 25 mmol/L (21-32); CREATININE 1.5 mg/dL (0.55-1.3); GLUCOSE,RANDOM 155 mg/dL (74-106); LIPASE 90 U/L (73-393); MAGNESIUM 1.8 mg/dL (1.8-2.4); POTASSIUM 4.9 mmol/L (3.5-5.1); SGOT/AST 100 U/L (15-37); SGPT/ALT 139 U/L (13-61); SODIUM 142 mmol/L (136-145); TOT PROT 8.7 g/dl (6.4-8.2)
[2018-08-16] MEDS ORDERED: ONDANSETRON 4 MG/2 ML VIAL IVPUSH ONE (10:47)
[2018-08-16] MEDS ORDERED: ONDANSETRON 4 MG/2 ML VIAL ONE (11:07)
[2018-08-16] MEDS ORDERED: PIPERACILLIN/TAZOB 4.5 GM 4.5 GM in DEXTROSE 5%-WATER 100 ML IVPB ONE (12:41)
[2018-08-16] MEDS ORDERED: PIPERACILLIN/TAZOB 4.5 GM 4.5 GM/100 ML BAG IVPB ONE (13:44)
[2018-08-16 14:55] LABS: INR 1.04 (0.83-1.09); PROTHROMBIN TIME (PATIENT) 11.7 SEC (9.7-13.0)
[2018-08-16] MEDS ORDERED: MORPHINE SULFATE 2 MG/ML VIAL IVPUSH PRN (14:55)
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
[2018-08-16] MEDS: SODIUM CHLORIDE 1,000 ML IV SCH ×2 (15:48→21:54)
[2018-08-16] MEDS ORDERED: ACETAMINOPHEN 1000 MG/100 ML VIAL (NON FORMULARY) IVPB PRN (15:50)
[2018-08-16] MEDS ORDERED: ONDANSETRON 4 MG/2 ML VIAL IVPB PRN (15:52)
[2018-08-16] MEDS ORDERED: INSULIN SLIDING SCALE (NOVOLOG) 1 VIAL SQ SCH ×2 (16:30→18:00)
[2018-08-16 16:50] LABS: URINE LEUK ESTERASE NEGATIVE (NEGATIVE)
[2018-08-16 16:51] LABS: PH,URINE 5.5 (5.0-8.0); URINE APPEARANCE CLEAR; URINE BILIRUBIN NEGATIVE (<2.0 mg/dL); URINE COLOR YELLOW; URINE GLUCOSE (UA) NEGATIVE (NEGATIVE); URINE KETONE NEGATIVE (NEGATIVE); URINE NITRITE NEGATIVE (NEGATIVE)
[2018-08-16 16:52] LABS: URINE UROBILINOGEN 0.2 mg/dL (0.2-1.0)
--- NOTE | 2018-08-16 16:59 | EKG ---
Test Reason : Blood Pressure : / mmHG Vent. Rate : 113 BPM Atrial Rate : 113 BPM P-R Int : 142 ms QRS Dur : 074 ms QT Int : 322 ms P-R-T Axes : 068 091 036 degrees QTc Int : 441 ms SINUS TACHYCARDIA RIGHTWARD AXIS BORDERLINE ECG WHEN COMPARED WITH ECG OF 09-AUG-2018 13:48, NO SIGNIFICANT CHANGE WAS FOUND Confirmed by MD Jules Daniel ([id number]) on 08/16/2018 4:59:02 PM Referred By: Confirmed By:Bert Jules MD
--- NOTE | 2018-08-16 17:04 | PN ---
Teaching Attending Note Name of Resident: Rica Oneill ATTENDING PHYSICIAN STATEMENT I saw and evaluated the patient. I reviewed the resident's note and discussed the case with the resident. I agree with the resident's findings and plan as documented. SUBJECTIVE: 63yo M with H polysubstance abuse, HTN, DM, HBV, GERD, PTSD presented to the ER from [facility] for sudden onset of abdominal pain 2 days ago. progressively worsening. assoc with abdominal distention and multiple episodes of vomiting and diarrhea. had similiar episode in the past and told he had an ulcer and was given PPI ( did not have any type of procedure). pt states he just had a large BM and his abdomen feels much better. denies Cp, SOB, fever, chills. no abdominal surgeries in the past. Never had colonscopy. family hx of cancer only for grandmother with leukemia last drink and use of cocaine (snorts) was a week ago OBJECTIVE: Last Vital Signs Temp Pulse Resp BP Pulse Ox 99.3 F 139 H 16 146/83 97 08/16/18 15:37 08/16/18 15:37 08/16/18 15:37 08/16/18 15:37 08/16/18 15:37 General NAD CV S1 S2 tachy lungs CTA B/L no wheezing/rales/rhonchi Abdomen soft +distended tympanic to percussion. normoactive BS. not tender, no abdominal scars ASSESSMENT AND PLAN: 63yo M with [facility] polysubstance abuse, HTN, DM, HBV, GERD, PTSD presented to the ER from [facility] for sudden onset of abdominal pain 2 days ago and on imaging found to have SBO 1. SBO- medicine admission. pt with no previous surgeries and SBO cause high supicion for malignancy and likely need for ex-lap. NPO,serial abdominal exams. IVF pain and nausea control. repeat AXR in the AM. as per surgery can wait on NGT placement. will place one if pt starts actively vomiting. would hold abx for now 2. Lactic acidosis- possible due to obstruction vs metformin. hydrate. hold medication. repeat 3. SHARON- due to dehydration. cont aggressive IVF. hold nephrotoxic agents. 4. Transaminitis- possible due to dehydration vs other etiology. will trend for now. liver appears normal on CT 5. HTn- currently normotensive. hold oral agents 6. continuous polysubstance abuse- no signs of withdrawal. sober for 2 years with recent relapse. wants to return to [facility] for rehab once medically optimized. 7. HBV- not treated. will need to f/u with GI as outpatient 8. PTSD 9. GERD- PPI 10. DVT ppx- hep sq
[2018-08-16 17:39] LABS: URINE MUCUS RARE
[2018-08-16] MEDS: INSULIN SLIDING SCALE (NOVOLOG) 1 VIAL SQ SCH (18:32)
[2018-08-16] MEDS: HEPARIN NA (PORCINE) 5,000 UNITS/ML 1ML VIAL SQ SCH (21:55)
[2018-08-16] MEDS ORDERED: ATORVASTATIN CA 10 MG TABLET (FP) PO SCH (22:00)
[2018-08-16] MEDS ORDERED: hydrOXYzine PAMOATE 50 MG CAPSULE (FP) PO SCH (22:00)
[2018-08-16] MEDS ORDERED: MIRTAZAPINE 15 MG TABLET (FP) PO SCH (22:00)
[2018-08-17] MEDS: INSULIN SLIDING SCALE (NOVOLOG) 1 VIAL SQ SCH ×3 (00:22→11:57)
[2018-08-17] MEDS: HEPARIN NA (PORCINE) 5,000 UNITS/ML 1ML VIAL SQ SCH ×2 (06:08→14:18)
[2018-08-17 07:22] LABS: HEMATOCRIT 38.9 % (35.4-49); HEMOGLOBIN 12.4 GM/dL (11.7-16.9); MCH 24.8 pg (25.7-33.7); MCHC 31.9 g/dl (32.0-35.9); MEAN CELL VOLUME 77.7 fl (80-96); MEAN PLT VOLUME 9.9 fl (7.5-11.1); PLATELET COUNT 199 K/MM3 (134-434); RDW 15.3 % (11.9-15.9); WHITE BLOOD COUNT 11.9 K/mm3 (4.0-10.0)
[2018-08-17 08:40] LABS: ALBUMIN 3.1 g/dl (3.4-5.0); ALK PHOS 86 U/L (45-117); ANION GAP 6 MMOL/L (8-16); BILIRUBIN,TOTAL 0.8 mg/dL (0.2-1); BLOOD UREA NITROGEN 19 mg/dL (7-18); CALCIUM 8.2 mg/dL (8.5-10.1); CHLORIDE 112 mmol/L (98-107); CO2 25 mmol/L (21-32); CREATININE 1.3 mg/dL (0.55-1.3); GLUCOSE,RANDOM 100 mg/dL (74-106); MAGNESIUM 1.7 mg/dL (1.8-2.4); PHOSPHOROUS 3.6 mg/dL (2.5-4.9); POTASSIUM 4.4 mmol/L (3.5-5.1); SGOT/AST 47 U/L (15-37); SGPT/ALT 75 U/L (13-61); SODIUM 143 mmol/L (136-145)
--- NOTE | 2018-08-17 09:17 | CONSULT ---
Consult Consult Specialty:: general surgery Reason for Consultation:: SBO - History of Present Illness Chief Complaint: abdominal pain and vomiting History of Present Illness: 63 yo male PMH HTN, NIDDMII, HLD, HBV, GERD, PTSD, Insomnia, depression, polysubstance abuse (Completed detox today for cocaine and EtOH) who was BIBEMS from [facility] for sudden onset of abdominal pain that started two days ago and progressively worsened overnight, which prompted this hospital visit. Patient describes the pain as a diffuse sharp, constant, nonradiating pain with no alleviating or exacerbating factors and a severity of 8/10. Patient reports associated symptoms of nausea, multiple episodes of nonbloody, watery diarrhea, at least 7-8 times in the last 24 hours, an episode of dark blood vomiting, and abdominal distention. Patient states he had similar episodes in the past and told he has an ulcer and given Omeprazole 2 years ago. We were asked to assess. - History Source History Provided By: Patient, Medical Record Limitations to Obtaining History: No Limitations - Past Medical History Cardio/Vascular: Yes: HTN, Hyperlipdemia Gastrointestinal: Yes: GERD Endocrine: Yes: Diabetes Mellitus - Alcohol/Substance Use Hx Alcohol Use: No - Smoking History Smoking history: Unknown if ever smoked Have you smoked in the past 12 months: No Home Medications - Allergies Allergies/Adverse Reactions: Allergies Allergy/AdvReac Type Severity Reaction Status Date / Time No Known Allergies Allergy Verified 08/16/18 08:58 - Home Medications Home Medications: Ambulatory Orders Aspirin [Children's Aspirin] 81 mg PO DAILY 08/09/18 Omeprazole 20 mg PO DAILY 08/09/18 Mirtazapine [Remeron -] 15 mg PO HS #30 tablet 08/10/18 hydrOXYzine PAMOATE [Vistaril -] 50 mg PO HS #30 capsule 08/10/18 Atorvastatin Ca [Lipitor] 10 mg PO HS #30 tablet 08/13/18 Enalapril Maleate [Vasotec -] 10 mg PO DAILY 08/16/18 metFORMIN HCL [Metformin HCl] 500 mg PO BID 08/16/18 Review of Systems - Review of Systems Constitutional: denies: Chills, Fever Eyes: denies: Blurred Vision, Recent Change in Vision HENT: denies: Difficult Swallowing, Throat Pain Neck: denies: Pain on Movement Cardiovascular: denies: Chest Pain, Palpitations Respiratory: denies: Cough, SOB Gastrointestinal: reports: Abdominal Pain, Bloating, Constipation, Nausea, Vomiting Genitourinary: denies: Dysuria Breasts: reports: No Symptoms Reported. denies: Pain Musculoskeletal: denies: Muscle Pain, Muscle Weakness Integumentary: denies: Incision, Lesions Neurological: denies: Seizure, Syncope Endocrine: denies: Unexplained Weight Gain, Unexplained Weight Loss Hematology/Lymphatic: denies: Easily Bruised, Excessive Bleeding Psychiatric: denies: Anxiety, Depression Physical Exam Vital Signs: Vital Signs Temperature 97.5 F L 08/17/18 06:00 Pulse Rate 68 08/17/18 06:00 Respiratory Rate 20 08/17/18 06:00 Blood Pressure 138/92 08/17/18 06:00 O2 Sat by Pulse Oximetry (%) 98 08/17/18 04:00 Constitutional: Yes: Well Nourished, No Distress, Calm Eyes: Yes: Conjunctiva Clear, EOM Intact HENT: Yes: Atraumatic, Normocephalic Neck: Yes: Supple, Trachea Midline Cardiovascular: Yes: Regular Rate and Rhythm, S1, S2 Respiratory: Yes: Regular, CTA Bilaterally Gastrointestinal: Yes: Normal Bowel Sounds, Soft, Distention. No: Abdomen, Obese ...Rectal Exam: Yes: Deferred Renal/: No: CVA Tenderness - Left, CVA Tenderness - Right Musculoskeletal: No: Joint Swelling, Muscle Pain, Muscle Weakness Extremities: No: Cool, Cyanosis Integumentary: No: Jaundice, Rash, Tattoos Neurological: Yes: Alert, Oriented Psychiatric: Yes: Alert, Oriented Labs: CBC, BMP 08/17/18 06:15 08/17/18 06:15 Imaging - Results X-ray: Report Reviewed, Image Reviewed (resolved SBO) Cat Scan: Report Reviewed, Image Reviewed (distal SBO) Problem List - Problems (1) Bowel obstruction Assessment/Plan: 63yo male PMH HTN, HLD, DM poly substyance abuse presented with a small bowel obstruction, one episode of vomiting, initial CT scan showed a high grade distal obstruction with transition in RLQ. Xray this morning shows resolution of SBO with contrast in the colon. reported flatus and BM since yesterday. no surgical intervention required. Resume diet as tolerated Return to Rehab Bowel regimen (colace TID) No surgical followup needed Thank you for the opportunity to participate in the care of this patient. Code(s): K56.609 - UNSP INTESTNL OBST, UNSP TO PARTIAL VERSUS COMPLETE OBST Qualifiers: Intestinal obstruction type: other intestinal obstruction Intestinal obstruction extent: partial Qualified Code(s): K56.690 - Other partial intestinal obstruction (2) Alcohol dependence Code(s): F10.20 - ALCOHOL DEPENDENCE, UNCOMPLICATED (3) Cocaine dependence Code(s): F14.20 - COCAINE DEPENDENCE, UNCOMPLICATED (4) Diabetes Code(s): E11.9 - TYPE 2 DIABETES MELLITUS WITHOUT COMPLICATIONS Qualifiers: Diabetes mellitus type: type 2 Diabetes mellitus complication status: with hyperglycemia (5) GERD (gastroesophageal reflux disease) Code(s): K21.9 - GASTRO-ESOPHAGEAL REFLUX DISEASE WITHOUT ESOPHAGITIS Qualifiers: Esophagitis presence: esophagitis presence not specified Qualified Code(s) : K21.9 - Gastro-esophageal reflux disease without esophagitis (6) HLD (hyperlipidemia) Code(s): E78.5 - HYPERLIPIDEMIA, UNSPECIFIED (7) HTN (hypertension) Code(s): I10 - ESSENTIAL (PRIMARY) HYPERTENSION (8) PTSD (post-traumatic stress disorder) Code(s): F43.10 - POST-TRAUMATIC STRESS DISORDER, UNSPECIFIED
[2018-08-17] MEDS ORDERED: BISACODYL 5 MG TABLET.DR (FP) PO ONE (09:52)
[2018-08-17] MEDS ORDERED: ASPIRIN 81 MG CHEWABLE TABLETS PO SCH (10:00)
[2018-08-17] MEDS ORDERED: PANTOPRAZOLE SODIUM 40 MG VIAL IVPUSH SCH (10:00)
[2018-08-17 11:04] VITALS: BP 132/72; PULSE 101; TEMP 98.2
--- NOTE | 2018-08-17 11:45 | PN ---
Physical Exam: SUBJECTIVE: Patient seen and examined OBJECTIVE: Vital Signs Period Temp Pulse Resp BP Sys/Duffy Pulse Ox Last 24 Hr 97.5 F-99.4 F 68-139 16-20 107-148/52-92 96-98 GENERAL: The patient is awake, alert, and fully oriented, in no acute distress. HEAD: Normal with no signs of trauma. EYES: PERRL, extraocular movements intact, sclera anicteric, conjunctiva clear. No ptosis. ENT: Ears normal, nares patent, oropharynx clear without exudates, moist mucous membranes. NECK: Trachea midline, full range of motion, supple. LUNGS: Breath sounds equal, clear to auscultation bilaterally, no wheezes, no crackles, no accessory muscle use. HEART: Regular rate and rhythm, S1, S2 without murmur, rub or gallop. ABDOMEN: Soft, nontender, nondistended, normoactive bowel sounds, no guarding, no rebound, no hepatosplenomegaly, no masses. EXTREMITIES: 2+ pulses, warm, well-perfused, no edema. NEUROLOGICAL: Cranial nerves II through XII grossly intact. Normal speech, gait not observed. PSYCH: Normal mood, normal affect. SKIN: Warm, dry, normal turgor, no rashes or lesions noted Laboratory Results - last 24 hr 08/16/18 08/16/18 08/16/18 12:44 13:21 14:10 WBC RBC Hgb Hct MCV MCH MCHC RDW Plt Count MPV PT with INR 11.70 INR 1.04 PTT (Actin FS) 32.0 Sodium Potassium Chloride Carbon Dioxide Anion Gap BUN Creatinine Creat Clearance w eGFR POC Glucometer Random Glucose Lactic Acid Calcium Phosphorus Magnesium Total Bilirubin AST ALT Alkaline Phosphatase Total Protein Albumin Urine Color Yellow Urine Appearance Clear Urine pH 5.5 Ur Specific [place] <= 1.005 Urine Protein 30 mg/dl Urine Glucose (UA) Negative Urine Ketones Negative Urine Blood Trace-intact H Urine Nitrite Negative Urine Bilirubin Negative Urine Urobilinogen 0.2 Ur Leukocyte Esterase Negative Urine WBC (Auto) 2 Urine RBC (Auto) 2 Urine Mucus Rare Blood Type A POSITIVE Antibody Screen Negative 08/16/18 08/16/18 08/16/18 14:18 18:20 21:09 WBC RBC Hgb Hct MCV MCH MCHC RDW Plt Count MPV PT with INR INR PTT (Actin FS) Sodium Potassium Chloride Carbon Dioxide Anion Gap BUN Creatinine Creat Clearance w eGFR POC Glucometer [phone] Random Glucose Lactic Acid 3.0 H* Calcium Phosphorus Magnesium Total Bilirubin AST ALT Alkaline Phosphatase Total Protein Albumin Urine Color Urine Appearance Urine pH Ur Specific [place] Urine Protein Urine Glucose (UA) Urine Ketones Urine Blood Urine Nitrite Urine Bilirubin Urine Urobilinogen Ur Leukocyte Esterase Urine WBC (Auto) Urine RBC (Auto) Urine Mucus Blood Type A POSITIVE Antibody Screen 08/16/18 08/17/18 08/17/18 21:09 00:19 06:06 WBC RBC Hgb Hct MCV MCH MCHC RDW Plt Count MPV PT with INR INR PTT (Actin FS) Sodium Potassium Chloride Carbon Dioxide Anion Gap BUN Creatinine Creat Clearance w eGFR POC Glucometer 111 96 Random Glucose Lactic Acid 1.8 Calcium Phosphorus Magnesium Total Bilirubin AST ALT Alkaline Phosphatase Total Protein Albumin Urine Color Urine Appearance Urine pH Ur Specific [place] Urine Protein Urine Glucose (UA) Urine Ketones Urine Blood Urine Nitrite Urine Bilirubin Urine Urobilinogen Ur Leukocyte Esterase Urine WBC (Auto) Urine RBC (Auto) Urine Mucus Blood Type Antibody Screen 08/17/18 08/17/18 06:15 06:15 WBC 11.9 H RBC 5.00 Hgb 12.4 Hct 38.9 D MCV 77.7 L MCH 24.8 L MCHC 31.9 L RDW 15.3 Plt Count 199 D MPV 9.9 PT with INR INR PTT (Actin FS) Sodium 143 Potassium 4.4 Chloride 112 H Carbon Dioxide 25 Anion Gap 6 L BUN 19 H Creatinine 1.3 Creat Clearance w eGFR 55.94 POC Glucometer Random Glucose 100 Lactic Acid Calcium 8.2 L Phosphorus 3.6 Magnesium 1.7 L Total Bilirubin 0.8 AST 47 H ALT 75 H Alkaline Phosphatase 86 Total Protein 6.0 L Albumin 3.1 L Urine Color Urine Appearance Urine pH Ur Specific Hickman Urine Protein Urine Glucose (UA) Urine Ketones Urine Blood Urine Nitrite Urine Bilirubin Urine Urobilinogen Ur Leukocyte Esterase Urine WBC (Auto) Urine RBC (Auto) Urine Mucus Blood Type Antibody Screen Active Medications Generic Name Dose Route Start Last Admin Trade Name Freq PRN Reason Stop Dose Admin Acetaminophen 1,000 mg 08/16/18 15:50 Ofirmev Injection - IVPB Q6H PRN PAIN LEVEL 4 - 6 Heparin Sodium (Porcine) 5,000 unit 08/16/18 22:00 09/24/18 06:08 Heparin - SQ Not Given TID [facility] Sodium Chloride 1,000 mls @ 100 mls/hr 08/16/18 15:00 08/16/18 21:54 Normal Saline - IV 100 mls/hr ASDIR FIORDALIZA Administration Insulin Aspart 1 vial 08/16/18 18:00 08/17/18 06:08 Novolog Vial Sliding Scale - SQ Not Given Q6HPO [facility] Protocol Ondansetron HCl 4 mg 08/16/18 15:52 Zofran Injection IVPB Q6H PRN NAUSEA Pantoprazole Sodium 40 mg 08/17/18 10:00 08/17/18 10:43 Protonix Iv IVPUSH 40 mg DAILY [facility] Administration ASSESSMENT/PLAN:
--- NOTE | 2018-08-17 15:51 | DS ---
Physical Exam: SUBJECTIVE: Patient seen and examined this AM. He is stating that he is feeling better, is tolerating his diet, and is having bowel movements. OBJECTIVE: Vital Signs Period Temp Pulse Resp BP Sys/Duffy Pulse Ox Last 24 Hr 97.5 F-99.4 F 68-120 16-20 107-148/52-92 96-98 PHYSICAL EXAM GENERAL: A&O, no acute distress HEAD: Normocephalic, atraumatic. EYES: PERRL, no scleral icterus EARS, NOSE, THROAT: oropharynx clear without exudates. Moist mucous membranes. NECK: supple without lymphadenopathy LUNGS: CTA b/l, no crackles or wheezes HEART: Regular rate and rhythm, normal S1 and S2 without murmur ABDOMEN: Soft, nontender to palpation, normoactive bowel sounds MUSCULOSKELETAL: No bony deformities or tenderness. EXTREMITIES: 2+ pulses, warm, well-perfused. No peripheral edema. NEUROLOGICAL: Cranial nerves II-XII grossly intact. Normal speech. PSYCHIATRIC: Cooperative. Good eye contact. Appropriate mood and affect. LABS Laboratory Results - last 24 hr 08/16/18 08/16/18 08/16/18 12:44 14:18 18:20 WBC RBC Hgb Hct MCV MCH MCHC RDW Plt Count MPV Sodium Potassium Chloride Carbon Dioxide Anion Gap BUN Creatinine Creat Clearance w eGFR POC Glucometer [phone] Random Glucose Lactic Acid 3.0 H* Calcium Phosphorus Magnesium Total Bilirubin AST ALT Alkaline Phosphatase Total Protein Albumin Urine Color Yellow Urine Appearance Clear Urine pH 5.5 Ur Specific [place] <= 1.005 Urine Protein 30 mg/dl Urine Glucose (UA) Negative Urine Ketones Negative Urine Blood Trace-intact H Urine Nitrite Negative Urine Bilirubin Negative Urine Urobilinogen 0.2 Ur Leukocyte Esterase Negative Urine WBC (Auto) 2 Urine RBC (Auto) 2 Urine Mucus Rare Blood Type 08/16/18 08/16/18 08/17/18 21:09 21:09 00:19 WBC RBC Hgb Hct MCV MCH MCHC RDW Plt Count MPV Sodium Potassium Chloride Carbon Dioxide Anion Gap BUN Creatinine Creat Clearance w eGFR POC Glucometer 111 Random Glucose Lactic Acid 1.8 Calcium Phosphorus Magnesium Total Bilirubin AST ALT Alkaline Phosphatase Total Protein Albumin Urine Color Urine Appearance Urine pH Ur Specific [place] Urine Protein Urine Glucose (UA) Urine Ketones Urine Blood Urine Nitrite Urine Bilirubin Urine Urobilinogen Ur Leukocyte Esterase Urine WBC (Auto) Urine RBC (Auto) Urine Mucus Blood Type A POSITIVE 08/17/18 08/17/18 08/17/18 06:06 06:15 06:15 WBC 11.9 H RBC 5.00 Hgb 12.4 Hct 38.9 D MCV 77.7 L MCH 24.8 L MCHC 31.9 L RDW 15.3 Plt Count 199 D MPV 9.9 Sodium 143 Potassium 4.4 Chloride 112 H Carbon Dioxide 25 Anion Gap 6 L BUN 19 H Creatinine 1.3 Creat Clearance w eGFR 55.94 POC Glucometer 96 Random Glucose 100 Lactic Acid Calcium 8.2 L Phosphorus 3.6 Magnesium 1.7 L Total Bilirubin 0.8 AST 47 H ALT 75 H Alkaline Phosphatase 86 Total Protein 6.0 L Albumin 3.1 L Urine Color Urine Appearance Urine pH Ur Specific [place] Urine Protein Urine Glucose (UA) Urine Ketones Urine Blood Urine Nitrite Urine Bilirubin Urine Urobilinogen Ur Leukocyte Esterase Urine WBC (Auto) Urine RBC (Auto) Urine Mucus Blood Type 08/17/18 11:56 WBC RBC Hgb Hct MCV MCH MCHC RDW Plt Count MPV Sodium Potassium Chloride Carbon Dioxide Anion Gap BUN Creatinine Creat Clearance w eGFR POC Glucometer 126 Random Glucose Lactic Acid Calcium Phosphorus Magnesium Total Bilirubin AST ALT Alkaline Phosphatase Total Protein Albumin Urine Color Urine Appearance Urine pH Ur Specific [place] Urine Protein Urine Glucose (UA) Urine Ketones Urine Blood Urine Nitrite Urine Bilirubin Urine Urobilinogen Ur Leukocyte Esterase Urine WBC (Auto) Urine RBC (Auto) Urine Mucus Blood Type IMAGING: Abdominal Radiograph 08/16 : SBO with paucity of gas in the colon. CXR: No evidence of infiltration or congestion CT Abdomen/Pelvis: Distal SBO, no gross masses or obstructing lesions noted Abdominal Radiograph 08/17 : No evidence of intestinal obstruction or pneumoperitoneum, Oral contrast seen in nondilated terminal ileum, Nonobstructive gas pattern in small bowel with several air fluid levels. HOSPITAL COURSE: Date of Admission:08/16/18 Date of Discharge: 08/17/18 63 year old male with a PMHx of HTN, NIDDMII, HLD, HBV, GERD, PTSD, Insomnia, depression, polysubstance abuse (Completed detox for cocaine and EtOH) was brought in from [facility] after two days of worsening abdominal pain and distension with nausea and watery nonbloody diarrhea. Initial CXR and CT noted with SBO as above. Patient was seen by surgery who recommended medical management at that time. The obstruction resolved after one day. The patient was only given fluids, zofran for nausea, and tylenol for pain control. His diarrhea resolved, and he was tolerating his diet well. Follow up abdominal radiograph showed resolution of SBO as mentioned above. Pt was deemed medically safe for discharge. He requested to return to [facility] for rehab though no beds were available, so he was discharged with a metro card to return home/ half-way as patient is currently homeless and recommended to follow up with continued rehab for his substance abuse. Minutes to complete discharge: 35 Discharge Summary Reason For Visit: INTESTINAL OBSTRUCTION Current Active Problems Bowel obstruction (Acute) Sepsis (Acute) Condition: Good - Instructions Diet, Activity, Other Instructions: You were admitted to the hospital with abdominal pain and vomiting likely caused by a small bowel obstruction. You were monitored in the hospital and given fluids and medications to help move your bowels. Your obstruction resolved and you are now moving your bowels again. You were seen by a surgeon who did not recommend any surgical management at this time. You are tolerating a regular diet well and are safe for discharge. You came from rehab for alcohol and cocaine. It is very important that you abstain from these substances on discharge from the hospital and recommended that you return to a rehab program to help with your sobriety. You should be seen by your primary care doctor within 1 week of discharge from the hospital. It is important that you have a colonoscopy done as a screening for colon cancer, which is a possible cause of your small bowel obstruction. Your primary care physician can refer you to a shearing machine feeder for a colonoscopy as an outpatient procedure. If you do not have a primary care physician that you regularly follow up with, you can follow up at the resident clinic. The referral information is provided for Dr. Avila. You should resume all of your home medications as they were prescribed prior to your admission to the hospital. If your symptoms return and you have severe abdominal pain, or sever nausea or vomiting, you should call your doctor or return to the emergency department immediately. Referrals: Flo Avila MD [Staff Physician] - 1 Week Disposition: HOME - Home Medications Comprehensive Discharge Medication List: Ambulatory Orders Aspirin [Children's Aspirin] 81 mg PO DAILY 08/09/18 Omeprazole 20 mg PO DAILY 08/09/18 Mirtazapine [Remeron -] 15 mg PO HS #30 tablet 08/10/18 hydrOXYzine PAMOATE [Vistaril -] 50 mg PO HS #30 capsule 08/10/18 Atorvastatin Ca [Lipitor] 10 mg PO HS #30 tablet 08/13/18 Enalapril Maleate [Vasotec -] 10 mg PO DAILY 08/16/18 metFORMIN HCL [Metformin HCl] 500 mg PO BID 08/16/18 This patient is new to me today: Yes Date on this admission: 08/17/18 Emergency Visit: Yes ED Registration Date: 08/16/18 Care time: The patient presented to the Emergency Department on the above date and was hospitalized for further evaluation of their emergent condition. Critical Care patient: No - Discharge Referral Referred to [facility] Med P.C.: No
--- NOTE | 2018-08-17 17:20 | PN ---
Teaching Attending Note Name of Resident: Bharath Arzate ATTENDING PHYSICIAN STATEMENT I saw and evaluated the patient. I reviewed the resident's note and discussed the case with the resident. I agree with the resident's findings and plan as documented. SUBJECTIVE:pain resolved. tolerating diet. dneies CP, SOB, fever, chills, abdominal pain. OBJECTIVE: Last Vital Signs Temp Pulse Resp BP Pulse Ox 98.2 F 101 H 20 132/72 98 08/17/18 10:00 08/17/18 10:00 08/17/18 10:00 08/17/18 10:00 08/17/18 04:00 General NAD Abdomen soft +distended normoactive BS. not tender, no abdominal scars ASSESSMENT AND PLAN: 63yo M with PMH polysubstance abuse, HTN, DM, HBV, GERD, PTSD presented to the ER from [facility] for sudden onset of abdominal pain 2 days ago and on imaging found to have SBO 1. SBO-appears to have resolved. Repeat AXR showing contrast through the colon without signs of obstruction. diet advanced and tolerating well. recommend pt to have screening colonoscopy as outpatient. 2. Lactic acidosis- possible due to obstruction vs metformin. resolved 3. SHARON- due to dehydration. improved. hold nephrotoxic agents. 4. Transaminitis- possible due to dehydration vs other etiology. trending down 5. HTn- currently normotensive. can re-start home medications. 6. continuous polysubstance abuse- no signs of withdrawal. sober for 2 years with recent relapse. does not want to return to [facility]. interested in outpatient programs to aid in abstinence. stressed importance of abstinence. 7. HBV- not treated. will need to f/u with GI as outpatient 8. PTSD 9. GERD- PPI 10. DVT ppx- hep sq 11. d/c home
== END 2018-08-17 16:40 | disposition home or self-care (01) | DRG 247 ==
LOC: JER 08:55 → JERBED 13:29 → J6S 21:43
PROVIDERS: ADMIT Internal Medicine; ATTEND Internal Medicine
DX: K56.609 Unspecified intestinal obstruction, unspecified as to partial versus complete obstruction (principal); E87.2 Acidosis; N17.9 Acute kidney failure, unspecified; E86.0 Dehydration; I10 Essential (primary) hypertension; R74.0 Nonspecific elevation of levels of transaminase and lactic acid dehydrogenase [LDH]; F43.10 Post-traumatic stress disorder, unspecified; F32.9 Major depressive disorder, single episode, unspecified; K21.9 Gastro-esophageal reflux disease without esophagitis; G47.00 Insomnia, unspecified; E11.9 Type 2 diabetes mellitus without complications; B19.10 Unspecified viral hepatitis B without hepatic coma; Z87.891 Personal history of nicotine dependence; E78.5 Hyperlipidemia, unspecified; F10.20 Alcohol dependence, uncomplicated; I95.9 Hypotension, unspecified
CPT/HCPCS: 36415; 71046-TC-FY; 74019-TC-FY; 74177-TC; 80053; 81003; 81015; 82550; 82962; 83605; 83690; 83735; 84100; 84484; 85025; 85027; 85610; 85730; 86850; 86900; 86901; 87040; 93005; 93010; 97116-GP; 97161-GP; 99285-25; J1644; J7030

== ENCOUNTER 2019-06-29 08:10 | Inpatient (IN) | payer OTHER ==
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
[2019-06-29 09:28] VITALS: BMI 27.0
[2019-06-29] MEDS ORDERED: MAGNESIUM CITRATE 300 ML BOTTLE PO PRN (09:34)
[2019-06-29] MEDS ORDERED: MELATONIN 5 MG TABLETS PO PRN (09:34)
[2019-06-29] MEDS ORDERED: MAG HYDROX/AL HYDROX/SIMETH 30 ML UNIT-DOSE CUP PO PRN (09:34)
[2019-06-29] MEDS ORDERED: ACETAMINOPHEN 325 MG TABLET (FP) PO PRN ×2 (09:34)
[2019-06-29] MEDS ORDERED: METHOCARBAMOL 500 MG TABLET PO PRN (09:34)
[2019-06-29] MEDS ORDERED: BISMUTH SUBSALICYLATE 524 MG/30 ML UD PO PRN (09:34)
[2019-06-29] MEDS ORDERED: IBUPROFEN 400 MG TABLET (FP) PO PRN (09:34)
[2019-06-29] MEDS ORDERED: MAGNESIUM HYDROX 2400MG/30ML ORAL SUSPENSION 30 ML CUP PO PRN (09:34)
[2019-06-29] MEDS ORDERED: chlordiazePOXIDE HCL 10 MG CAPSULE PO PRN (09:34)
[2019-06-29] MEDS ORDERED: hydrOXYzine PAMOATE 25 MG CAPSULE (FP) PO PRN (09:34)
[2019-06-29] MEDS ORDERED: MENTHOL/PHENOL 1 EACH UD MM PRN (09:34)
[2019-06-29] MEDS ORDERED: cloNIDine HCL 0.1 MG TABLET PO PRN (09:34)
[2019-06-29] MEDS: PANTOPRAZOLE 20 MG TABLET (FP) PO SCH (10:57)
[2019-06-29] MEDS: ENALAPRIL MALEATE 10 MG TABLET (FP) PO SCH (10:57)
[2019-06-29] MEDS ORDERED: METHADONE HCL 10 MG TABLET (FOR DETOX USE ONLY) PO ONE (11:00)
[2019-06-29] MEDS: PRENATAL VITAMINS W/ FOLIC ACID TABLET (FP) PO SCH (11:00)
[2019-06-29 13:03] LABS: HEMATOCRIT 40.8 % (35.4-49); HEMOGLOBIN 13.5 GM/dL (11.7-16.9); MCHC 33.1 g/dl (32.0-35.9); MEAN CELL VOLUME 75.7 fl (80-96); MEAN PLT VOLUME 9.7 fl (7.5-11.1); PLATELET COUNT 248 K/MM3 (134-434); RBC 5.39 M/mm3 (4.00-5.60); RDW 15.2 % (11.9-15.9); WHITE BLOOD COUNT 8.2 K/mm3 (4.0-10.0)
[2019-06-29 13:06] LABS: ALBUMIN 4.2 g/dl (3.4-5.0); BILIRUBIN,TOTAL 0.9 mg/dL (0.2-1); BLOOD UREA NITROGEN 13.8 mg/dL (7-18); CALCIUM 9.4 mg/dL (8.5-10.1); CREATININE 1.4 mg/dL (0.55-1.3); POTASSIUM 3.6 mmol/L (3.5-5.1); TOT PROT 7.6 g/dl (6.4-8.2)
[2019-06-29] MEDS: chlordiazePOXIDE HCL 25 MG CAPSULE PO SCH ×2 (15:31→22:20)
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
[2019-06-29] MEDS: THIAMINE HCL 100 MG TABLET (FP) PO SCH (22:20)
[2019-06-29] MEDS: MIRTAZAPINE 15 MG TABLET (FP) PO SCH (22:21)
[2019-06-30] MEDS: chlordiazePOXIDE HCL 25 MG CAPSULE PO SCH ×3 (06:35→22:17)
[2019-06-30] MEDS ORDERED: METHADONE HCL 5 MG TABLET (FOR DETOX USE ONLY) PO ONE (10:00)
[2019-06-30] MEDS: ATORVASTATIN CA 10 MG TABLET (FP) PO SCH ×2 (10:12→22:17)
[2019-06-30] MEDS: ENALAPRIL MALEATE 10 MG TABLET (FP) PO SCH (10:12)
[2019-06-30] MEDS: PRENATAL VITAMINS W/ FOLIC ACID TABLET (FP) PO SCH (10:12)
[2019-06-30] MEDS: PANTOPRAZOLE 20 MG TABLET (FP) PO SCH (10:13)
--- NOTE | 2019-06-30 14:56 | PN ---
[facility] CIWA - CIWA Score Nausea/Vomitin-Mild Nausea/No Vomiting Muscle Tremors: 4-Moderate,w/Arms Extend Anxiety: 3 Agitation: 2 Paroxysmal Sweats: 1-Minimal Palms Moist Orientation: 0-Oriented Tacttile Disturbances: 1-Very Mild Itch/Numbness Auditory Disturbances: 0-None Visual Disturbances: 0-None Headache: 0-None Present CIWA-Ar Total Score: 12 S COWS - Scale Resting Pulse: 0= [place] 80 or Below Sweatin= Chills/Flushing Restless Observation: 0= Sits Still Pupil Size: 0= Normal to Room Light Bone or Joint Aches: 1= Mild Discomfort Runny Nose/ Eye Tearin= None GI Upset > 30mins: 2= Nausea/Diarrhea Tremor Observation of Outstretched Hands: 2= Slight Tremor Visible Yawning Observation: 1= 1-2x During Session Anxiety or Irritability: 2=Irritable/Anxious Goose Flesh Skin: 3=Piloerection COWS Score: 12 [facility] Progress Note (SOAP) Subjective: 64 years old male admitted on 06/29/19 for acute alcohol and opiate withdrawal sx management doing well with librium and methadone detox regimen less tremor mild body ache Objective: 06/30/19 15:00 Vital Signs Temperature 97.0 F L 06/30/19 14:16 Pulse Rate 78 06/30/19 14:16 Respiratory Rate 18 06/30/19 14:16 Blood Pressure 129/83 06/30/19 14:16 O2 Sat by Pulse Oximetry (%) Laboratory Last Values WBC 8.2 K/mm3 (4.0-10.0) 06/29/19 10:50 RBC 5.39 M/mm3 (4.00-5.60) 06/29/19 10:50 Hgb 13.5 GM/dL (11.7-16.9) 06/29/19 10:50 Hct 40.8 % (35.4-49) 06/29/19 10:50 MCV 75.7 fl (80-96) L 06/29/19 10:50 MCH 25.0 pg (25.7-33.7) L 06/29/19 10:50 MCHC 33.1 g/dl (32.0-35.9) 06/29/19 10:50 RDW 15.2 % (11.9-15.9) 06/29/19 10:50 Plt Count 248 K/MM3 (134-434) D 06/29/19 10:50 MPV 9.7 fl (7.5-11.1) 06/29/19 10:50 Sodium 141 mmol/L (136-145) 06/29/19 10:50 Potassium 3.6 mmol/L (3.5-5.1) 06/29/19 10:50 Chloride 104 mmol/L (98-107) 06/29/19 10:50 Carbon Dioxide 29 mmol/L (21-32) 06/29/19 10:50 Anion Gap 7 MMOL/L (8-16) L 06/29/19 10:50 BUN 13.8 mg/dL (7-18) 06/29/19 10:50 Creatinine 1.4 mg/dL (0.55-1.3) H 06/29/19 10:50 Est GFR (CKD-EPI)AfAm 61.53 06/29/19 10:50 Est GFR (CKD-EPI)NonAf 53.09 06/29/19 10:50 POC Glucometer 113 UNITS (80-120) 06/30/19 06:38 Random Glucose 109 mg/dL (74-106) H 06/29/19 10:50 Calcium 9.4 mg/dL (8.5-10.1) 06/29/19 10:50 Total Bilirubin 0.9 mg/dL (0.2-1) 06/29/19 10:50 AST 26 U/L (15-37) 06/29/19 10:50 ALT 37 U/L (13-61) 06/29/19 10:50 Alkaline Phosphatase 132 U/L (45-117) H 06/29/19 10:50 Total Protein 7.6 g/dl (6.4-8.2) 06/29/19 10:50 Albumin 4.2 g/dl (3.4-5.0) 06/29/19 10:50 RPR Titer Nonreactive (NONREACTIVE) 06/29/19 10:50 lab noted Assessment: alcohol and opiate withdrawal sx Plan: continue alcohol and opiate detox
[2019-06-30] MEDS: MIRTAZAPINE 15 MG TABLET (FP) PO SCH (22:17)
[2019-06-30] MEDS: THIAMINE HCL 100 MG TABLET (FP) PO SCH (22:17)
[2019-07-01] MEDS: chlordiazePOXIDE 5 MG CAPSULE PO SCH ×3 (06:21→21:09)
[2019-07-01] MEDS ORDERED: METHADONE HCL 10 MG TABLET (FOR DETOX USE ONLY) PO ONE (10:00)
[2019-07-01] MEDS: PANTOPRAZOLE 20 MG TABLET (FP) PO SCH (10:04)
[2019-07-01] MEDS: PRENATAL VITAMINS W/ FOLIC ACID TABLET (FP) PO SCH (10:04)
[2019-07-01] MEDS: ENALAPRIL MALEATE 10 MG TABLET (FP) PO SCH (10:04)
[2019-07-01] MEDS ORDERED: ENALAPRIL MALEATE 10 MG TABLET (FP) PO ONE (13:13)
--- NOTE | 2019-07-01 14:39 | PN ---
[facility] CIWA - CIWA Score Nausea/Vomitin-No Nausea/No Vomiting Muscle Tremors: None Anxiety: 3 Agitation: 1-Slight > Activity Paroxysmal Sweats: No Perspiration Orientation: 0-Oriented Tacttile Disturbances: 1-Very Mild Itch/Numbness Auditory Disturbances: 0-None Visual Disturbances: 1-Very Mild Sensitivity Headache: 0-None Present CIWA-Ar Total Score: 6 S COWS - Scale Resting Pulse: 1= [place] 81-100 Sweatin= No chills or Flushing Restless Observation: 0= Sits Still Pupil Size: 0= Normal to Room Light Bone or Joint Aches: 0= None Runny Nose/ Eye Tearin= None GI Upset > 30mins: 0= None Tremor Observation of Outstretched Hands: 0= None Yawning Observation: 1= 1-2x During Session Anxiety or Irritability: 2=Irritable/Anxious Goose Flesh Skin: 0=Smooth Skin COWS Score: 4 S Progress Note (SOAP) Subjective: Anxious (Mild). Patient reports that Withdrawal Symptoms have subsided since time of Admission to Detox. Objective: PATIENT A & O X 3, OBSERVED AMBULATING ON UNIT UNASSISTED. IN NO ACUTE DISTRESS. 07/01/19 14:37 Vital Signs Temperature 97.8 F 07/01/19 13:35 Pulse Rate 92 H 07/01/19 13:35 Respiratory Rate 20 07/01/19 13:35 Blood Pressure 153/91 07/01/19 13:35 O2 Sat by Pulse Oximetry (%) Laboratory Tests 06/29/19 06/29/19 06/29/19 10:50 10:50 10:50 WBC 8.2 RBC 5.39 Hgb 13.5 Hct 40.8 MCV 75.7 L MCH 25.0 L MCHC 33.1 RDW 15.2 Plt Count 248 D MPV 9.7 Sodium 141 Potassium 3.6 Chloride 104 Carbon Dioxide 29 Anion Gap 7 L BUN 13.8 Creatinine 1.4 H Est GFR (CKD-EPI)AfAm 61.53 Est GFR (CKD-EPI)NonAf 53.09 POC Glucometer Random Glucose 109 H Calcium 9.4 Total Bilirubin 0.9 AST 26 ALT 37 Alkaline Phosphatase 132 H Total Protein 7.6 Albumin 4.2 RPR Titer Nonreactive 06/30/19 07/01/19 06:38 06:20 WBC RBC Hgb Hct MCV MCH MCHC RDW Plt Count MPV Sodium Potassium Chloride Carbon Dioxide Anion Gap BUN Creatinine Est GFR (CKD-EPI)AfAm Est GFR (CKD-EPI)NonAf POC Glucometer 113 116 Random Glucose Calcium Total Bilirubin AST ALT Alkaline Phosphatase Total Protein Albumin RPR Titer LABS NOTED. Assessment: 07/01/19 14:37 WITHDRAWAL SYMPTOMS. HYPERTENSION. AZOTEMIA. Plan: CONTINUE DETOX. INCREASE DAILY PO WATER INTAKE. INCREASE DAILY DOSE OF ENALAPRIL TO 20 MG PO DAILY FOR ELEVATED BLOOD PRESSURE DESPITE PREVIOUS TREATMENT.
[2019-07-01] MEDS ORDERED: ENALAPRIL MALEATE 10 MG TABLET (FP) PO SCH (14:45)
[2019-07-01] MEDS: THIAMINE HCL 100 MG TABLET (FP) PO SCH (21:08)
[2019-07-01] MEDS: MIRTAZAPINE 15 MG TABLET (FP) PO SCH (21:08)
[2019-07-01] MEDS: ATORVASTATIN CA 10 MG TABLET (FP) PO SCH (21:09)
[2019-07-02] MEDS ORDERED: chlordiazePOXIDE HCL 10 MG CAPSULE PO PRN
[2019-07-02] MEDS ORDERED: METHADONE HCL 5 MG TABLET (FOR DETOX USE ONLY) PO ONE (06:00)
[2019-07-02] MEDS: chlordiazePOXIDE HCL 10 MG CAPSULE PO SCH ×2 (07:52→13:00)
[2019-07-02] MEDS ORDERED: ENALAPRIL MALEATE 10 MG TABLET (FP) PO SCH (10:00)
[2019-07-02] MEDS: PRENATAL VITAMINS W/ FOLIC ACID TABLET (FP) PO SCH (10:13)
[2019-07-02] MEDS: PANTOPRAZOLE 20 MG TABLET (FP) PO SCH (10:13)
--- NOTE | 2019-07-02 16:30 | PN ---
[facility] CIWA - CIWA Score Nausea/Vomitin-No Nausea/No Vomiting Muscle Tremors: None Anxiety: 0-No Anxiety, at Ease Agitation: 2 Paroxysmal Sweats: No Perspiration Orientation: 0-Oriented Tacttile Disturbances: 0-None Auditory Disturbances: 0-None Visual Disturbances: 0-None Headache: 0-None Present CIWA-Ar Total Score: 2 S COWS - Scale Resting Pulse: 1= [place] 81-100 Sweatin= No chills or Flushing Restless Observation: 0= Sits Still Pupil Size: 0= Normal to Room Light Bone or Joint Aches: 0= None Runny Nose/ Eye Tearin= None GI Upset > 30mins: 0= None Tremor Observation of Outstretched Hands: 0= None Yawning Observation: 0= None Anxiety or Irritability: 0= None Goose Flesh Skin: 0=Smooth Skin COWS Score: 1 [facility] Progress Note (SOAP) Subjective: Patient Denies Current Withdrawal / Detox Symptoms and Reports That He Feels Well Overall At this Time. Objective: PATIENT A & O X 3, OBSERVED AMBULATING ON DETOX UNIT UNASSISTED. IN NO ACUTE DISTRESS. 07/02/19 16:28 Vital Signs Temperature 97.9 F 07/02/19 13:47 Pulse Rate 113 H 07/02/19 13:47 Respiratory Rate 18 07/02/19 13:47 Blood Pressure 173/97 H 07/02/19 13:47 O2 Sat by Pulse Oximetry (%) Laboratory Tests 06/29/19 06/29/19 06/29/19 10:50 10:50 10:50 WBC 8.2 RBC 5.39 Hgb 13.5 Hct 40.8 MCV 75.7 L MCH 25.0 L MCHC 33.1 RDW 15.2 Plt Count 248 D MPV 9.7 Sodium 141 Potassium 3.6 Chloride 104 Carbon Dioxide 29 Anion Gap 7 L BUN 13.8 Creatinine 1.4 H Est GFR (CKD-EPI)AfAm 61.53 Est GFR (CKD-EPI)NonAf 53.09 POC Glucometer Random Glucose 109 H Calcium 9.4 Total Bilirubin 0.9 AST 26 ALT 37 Alkaline Phosphatase 132 H Total Protein 7.6 Albumin 4.2 RPR Titer Nonreactive 06/30/19 07/01/19 06:38 06:20 WBC RBC Hgb Hct MCV MCH MCHC RDW Plt Count MPV Sodium Potassium Chloride Carbon Dioxide Anion Gap BUN Creatinine Est GFR (CKD-EPI)AfAm Est GFR (CKD-EPI)NonAf POC Glucometer 113 116 Random Glucose Calcium Total Bilirubin AST ALT Alkaline Phosphatase Total Protein Albumin RPR Titer LABS NOTED. Assessment: 07/02/19 16:29 COMPLETION OF DETOX REGIMEN. Plan: SINCE PATIENT DENIES CURRENT WITHDRAWAL / DETOX SYMPTOMS AND REPORTS THAT HE FEELS WELL OVERALL, AT PATIENT'S REQUEST, HE WAS GRANTED AN EARLY DISCHARGE FROM DETOX UNIT SO THAT HE MAY PROCEED ON TO AFTERCARE PLAN - [facility] ([place], [place]).
--- NOTE | 2019-07-02 16:36 | DS ---
[facility] Detox Discharge Summary Admission Date: 06/29/19 Discharge Date: 07/02/19 - History Present History: Alcohol Dependence, Cannabis Dependence, Cocaine Dependence Additional Comments: PATIENT DENIES CURRENT WITHDRAWAL SYMPTOMS , AND REPORTS THAT HE FEELS WELL OVERALL AT TIME OF DISCHARGE FROM DETOX UNIT. PATIENT GOING TO [facility] ([place], [place]) FOR AFTERCARE. PATIENT WAS DISCHARGED FROM DETOX UNIT TO BE TAKEN OVER TO REHAB UNIT IN STABLE MEDICAL CONDITION. Pertinent Past History: G.E.R.D., Hypercholesterolemia, Major Depressive Disorder, Anxiety Disorder, Post-Traumatic Stress Disorder, HTN, DM, Insomnia. - Physical Exam Results Vital Signs: Vital Signs Temperature 97.9 F 07/02/19 13:47 Pulse Rate 113 H 07/02/19 13:47 Respiratory Rate 18 07/02/19 13:47 Blood Pressure 173/97 H 07/02/19 13:47 O2 Sat by Pulse Oximetry (%) Pertinent Admission Physical Exam Findings: WITHDRAWAL SYMPTOMS. Laboratory Tests 06/29/19 06/29/19 06/29/19 10:50 10:50 10:50 WBC 8.2 RBC 5.39 Hgb 13.5 Hct 40.8 MCV 75.7 L MCH 25.0 L MCHC 33.1 RDW 15.2 Plt Count 248 D MPV 9.7 Sodium 141 Potassium 3.6 Chloride 104 Carbon Dioxide 29 Anion Gap 7 L BUN 13.8 Creatinine 1.4 H Est GFR (CKD-EPI)AfAm 61.53 Est GFR (CKD-EPI)NonAf 53.09 POC Glucometer Random Glucose 109 H Calcium 9.4 Total Bilirubin 0.9 AST 26 ALT 37 Alkaline Phosphatase 132 H Total Protein 7.6 Albumin 4.2 RPR Titer Nonreactive 06/30/19 07/01/19 06:38 06:20 WBC RBC Hgb Hct MCV MCH MCHC RDW Plt Count MPV Sodium Potassium Chloride Carbon Dioxide Anion Gap BUN Creatinine Est GFR (CKD-EPI)AfAm Est GFR (CKD-EPI)NonAf POC Glucometer 113 116 Random Glucose Calcium Total Bilirubin AST ALT Alkaline Phosphatase Total Protein Albumin RPR Titer LABS NOTED. - Treatment Hospital Course: Detox Protocol Followed, Detoxed Safely, Responded well, Discharged Condition Good, Rehab Referral Accepted Patient has Accepted a Rehab Referral to: [facility] ([place], [place]). - Medication Discharge Medications: Ambulatory Orders Omeprazole 20 mg PO DAILY 08/09/18 Mirtazapine [Remeron -] 15 mg PO HS #30 tablet 08/10/18 Atorvastatin Ca [Lipitor] 10 mg PO HS #30 tablet 08/13/18 Enalapril Maleate [Vasotec -] 10 mg PO DAILY 08/16/18 hydrOXYzine PAMOATE [Vistaril -] 25 mg PO HS 06/29/19 - Diagnosis (1) Alcohol dependence with uncomplicated withdrawal Current Visit: Yes Status: Acute (2) Alcohol-induced anxiety disorder Current Visit: Yes Status: Acute (3) Cocaine dependence Current Visit: Yes Status: Chronic Qualifiers: Substance use status: in withdrawal Qualified Code(s): F14.23 - Cocaine dependence with withdrawal (4) Diabetes Current Visit: Yes Status: Chronic Qualifiers: Diabetes mellitus type: type 2 Diabetes mellitus longterm insulin use: without termite treater helper use Diabetes mellitus complication status: with hyperglycemia Qualified Code(s): E11.65 - Type 2 diabetes mellitus with hyperglycemia (5) Elevated cholesterol Current Visit: Yes Status: Chronic (6) GERD (gastroesophageal reflux disease) Current Visit: Yes Status: Chronic Qualifiers: Esophagitis presence: esophagitis presence not specified Qualified Code(s) : K21.9 - Gastro-esophageal reflux disease without esophagitis (7) HLD (hyperlipidemia) Current Visit: Yes Status: Chronic Qualifiers: Hyperlipidemia type: unspecified Qualified Code(s): E78.5 - Hyperlipidemia , unspecified (8) HTN (hypertension) Current Visit: Yes Status: Chronic Qualifiers: Hypertension type: unspecified Qualified Code(s): I10 - Essential (primary ) hypertension (9) MDD (major depressive disorder), recurrent episode, moderate Current Visit: Yes Status: Chronic (10) PTSD (post-traumatic stress disorder) Current Visit: Yes Status: Chronic (11) Cannabis use disorder, mild, abuse Current Visit: Yes Status: Chronic (12) Insomnia Current Visit: Yes Status: Chronic Qualifiers: Insomnia type: unspecified Qualified Code(s): G47.00 - Insomnia, unspecified (13) Non-compliance Current Visit: Yes Status: Chronic (14) Substance induced mood disorder Current Visit: Yes Status: Chronic - AMA Did Patient Leave Against Medical Advice: No
[2019-07-02 17:09] VITALS: BP 189/104; PULSE 103; TEMP 98
[2019-07-03] MEDS ORDERED: chlordiazePOXIDE HCL 10 MG CAPSULE PO ONE (05:00)
== END 2019-07-02 18:05 | disposition other institution (70) | DRG 774 ==
LOC: YASAS 08:10 → Y3N 10:18
PROVIDERS: ADMIT Surgery; ATTEND Surgery
PROC: HZ2ZZZZ Detoxification Services for Substance Abuse Treatment (ICD-10-PCS; principal; 2019-06-29)
DX: F10.230 Alcohol dependence with withdrawal, uncomplicated (principal); F10.280 Alcohol dependence with alcohol-induced anxiety disorder; F14.20 Cocaine dependence, uncomplicated; F33.1 Major depressive disorder, recurrent, moderate; F43.10 Post-traumatic stress disorder, unspecified; F12.10 Cannabis abuse, uncomplicated; F19.24 Other psychoactive substance dependence with psychoactive substance-induced mood disorder; I10 Essential (primary) hypertension; E11.65 Type 2 diabetes mellitus with hyperglycemia; E78.5 Hyperlipidemia, unspecified; K21.9 Gastro-esophageal reflux disease without esophagitis; G47.00 Insomnia, unspecified; R79.89 Other specified abnormal findings of blood chemistry; Z91.19 Patient's noncompliance with other medical treatment and regimen; Z87.438 Personal history of other diseases of male genital organs; Z91.5 Personal history of self-harm
CPT/HCPCS: 36415; 80053; 82962; 85027; 86593; J0735

== ENCOUNTER 2019-07-02 17:37 | Inpatient (IN) | payer OTHER ==
--- NOTE | 2019-07-02 16:48 | HP ---
[facility] Rehab Assess/Revision - Admission History Admitted to Rehab from: [facility] [address] Date of Admission to Rehab: 07/02/2019 - Vital signs Vital Signs: NOTED. - Findings Detox History & Physical reviewed: Yes Concur with findings: Yes Comments/Additional Findings: PATIENT'S MEDICAL / MEDICATION HISTORY REVIEWED PRIOR TO DISCHARGE FROM DETOX UNIT. WILL CONTINUE TO MONITOR BP WHILE PATIENT IS ADMITTED ON REHAB UNIT. PATIENT WAS DISCHARGED FROM DETOX UNIT TO BE TAKEN OVER TO REHAB UNIT IN STABLE MEDICAL CONDITION. Inpatient Rehab Admission - Rehab Decision to Admit Inpatient rehab admission?: Yes - Initial Determination Are CD services needed?: Yes Free of communicable disease: Yes Not in need of hospitalization: Yes - Rehab Admission Criteria Previous failed treatment: Yes Poor recovery environment: Yes Comorbidities: Yes Lacks judgement: No Patient is meeting Inpatient Rehab admission criteria:: Yes
[~2019-07-02 17:37] MED LIST: LOPERAMIDE HCL 2 MG CAPSULE PO PRN; MENTHOL/PHENOL 1 EACH UD MM PRN; P-EPHED 60MG/TRIPROLIDI 2.5MG TABLET PO PRN; guaiFENesin 200 MG/10 ML 10 ML UNIT-DOSE CUPS PO PRN
[2019-07-02] MEDS: THIAMINE HCL 100 MG TABLET (FP) PO SCH (21:56)
[2019-07-02] MEDS: ATORVASTATIN CA 10 MG TABLET (FP) PO SCH (21:57)
[2019-07-02] MEDS: MIRTAZAPINE 15 MG TABLET (FP) PO SCH (21:57)
[2019-07-03] MEDS: ACETAMINOPHEN 325 MG TABLET (FP) PO PRN ×2 (11:22→21:37)
[2019-07-03] MEDS: PRENATAL VITAMINS W/ FOLIC ACID TABLET (FP) PO SCH (11:24)
[2019-07-03] MEDS: PANTOPRAZOLE 20 MG TABLET (FP) PO SCH (11:24)
[2019-07-03] MEDS: ENALAPRIL MALEATE 10 MG TABLET (FP) PO SCH (11:24)
[2019-07-03] MEDS: ATORVASTATIN CA 10 MG TABLET (FP) PO SCH (21:35)
[2019-07-03] MEDS: THIAMINE HCL 100 MG TABLET (FP) PO SCH (21:36)
[2019-07-03] MEDS: MIRTAZAPINE 15 MG TABLET (FP) PO SCH (21:36)
[2019-07-03] MEDS: MELATONIN 5 MG TABLETS PO PRN (23:37)
[2019-07-04] MEDS: PANTOPRAZOLE 20 MG TABLET (FP) PO SCH (10:26)
[2019-07-04] MEDS: PRENATAL VITAMINS W/ FOLIC ACID TABLET (FP) PO SCH (10:26)
[2019-07-04] MEDS: ENALAPRIL MALEATE 10 MG TABLET (FP) PO SCH (10:26)
[2019-07-04] MEDS: ACETAMINOPHEN 325 MG TABLET (FP) PO PRN ×2 (10:26→18:10)
[2019-07-04] MEDS: MIRTAZAPINE 15 MG TABLET (FP) PO SCH (21:37)
[2019-07-04] MEDS: MELATONIN 5 MG TABLETS PO PRN (21:37)
[2019-07-04] MEDS: ATORVASTATIN CA 10 MG TABLET (FP) PO SCH (21:37)
[2019-07-04] MEDS: THIAMINE HCL 100 MG TABLET (FP) PO SCH (21:37)
[2019-07-05] MEDS: PANTOPRAZOLE 20 MG TABLET (FP) PO SCH (10:25)
[2019-07-05] MEDS: ENALAPRIL MALEATE 10 MG TABLET (FP) PO SCH (10:25)
[2019-07-05] MEDS: PRENATAL VITAMINS W/ FOLIC ACID TABLET (FP) PO SCH (10:25)
[2019-07-05] MEDS: ACETAMINOPHEN 325 MG TABLET (FP) PO PRN ×3 (13:07→21:46)
[2019-07-05] MEDS: THIAMINE HCL 100 MG TABLET (FP) PO SCH (21:46)
[2019-07-05] MEDS: ATORVASTATIN CA 10 MG TABLET (FP) PO SCH (21:47)
[2019-07-05] MEDS: MIRTAZAPINE 15 MG TABLET (FP) PO SCH (21:47)
[2019-07-05] MEDS: MELATONIN 5 MG TABLETS PO PRN (21:48)
[2019-07-06] MEDS: ACETAMINOPHEN 325 MG TABLET (FP) PO PRN (04:23)
--- NOTE | 2019-07-06 06:59 | HP ---
CIWA Score - Admission Criteria [facility]ASAS Guidelines: Admission for Medically Managed Detox: Requires at least one of the followin. CIWA greater than 12 2. Seizures within the past 24 hours 3. Delirium tremens within the past 24 hours 4. Hallucinations within the past 24 hours 5. Acute intervention needed for co occurring medical disorder 6. Acute intervention needed for co occurring psychiatric disorder 7. Severe withdrawal that cannot be handled at a lower level of care (continued vomiting, continued diarrhea, abnormal vital signs) requiring intravenous medication and/or fluids 8. Admission ROS S - HPI Chief Complaint: Seeking admission to Rehab Allergies/Adverse Reactions: Allergies Allergy/AdvReac Type Severity Reaction Status Date / Time No Known Allergies Allergy Verified 07/02/19 18:27 - Ebola screening Have you traveled outside of the country in the last 21 days: No (N) Have you had contact with anyone from an Ebola affected area: No Do you have a fever: No Patient History - Patient Medical History Hx Asthma: No Hx Chronic Obstructive Pulmonary Disease (COPD): No Hx Cancer: No Hx Cardiac Disorders: No Hx Congestive Heart Failure: No Hx Hypertension: Yes Hx Hypercholesterolemia: Yes (On meds) Hx Pacemaker: No HX Cerebrovascular Accident: No Hx Seizures: No Hx Diabetes: Yes (borderline) Hx Gastrointestinal Disorders: No Hx Liver Disease: No Hx Genitourinary Disorders: No Hx Sexually Transmitted Disorders: No Hx Renal Disease (ESRD): No Hx Thyroid Disease: No Hx Human Immunodeficiency Virus (HIV): No (2016) Hx Hepatitis C: No Hx Depression: Yes Hx Suicide Attempt: Yes (Pt tried cut himself in 2014) Hx Bipolar Disorder: No Hx Schizophrenia: No - Patient Surgical History Past Surgical History: Yes Hx Orthopedic Surgery: Yes (L shoulder sx) Anesthesia Reaction: No - PPD History Date: 08/11/18 Results: 0 MM - Smoking Cessation Smoking history: Current some day smoker Have you smoked in the past 12 months: Yes Aproximately how many cigarettes per day: 1 Hx Chewing Tobacco Use: No - Substances abused Alcohol Substance route: Oral Frequency: Daily Amount used: 4 40oz cans Age of first use: 11 Date of last use: 06/29/19 Other Other (specify): oxycodone Substance route: Oral Frequency: Daily Amount used: 5TABS Age of first use: 64 Date of last use: 06/29/19 Cocaine Other (specify): crack /brandi Substance route: Smoking Frequency: Daily Amount used: $600 Age of first use: 28 Date of last use: 06/27/19 Family Disease History - Family Disease History Family Disease History: CA: Grandparent (MGM leukemia, MGF had CAD), Other: Grandparent, Father (alcoholic), Mother (alcoholic, HTN, DM), Brother (1 brother with kidney problems), Sister (1 sister obesity ), Daughter (1 daughter no problems alive and well) Admission Physical Exam S - Vital Signs Vital Signs: Vital Signs - 24 hr 07/05/19 07/06/19 10:00 03:30 Pulse Rate 85 Respiratory 18 Rate Blood Pressure 147/79 Breathalyzer - Breathalyzer Breathalyzer: 0 Urine Drug Screen - Test Device Lot number: [id number] Expiration date: 03/23/21 - Control Is test valid?: Yes - Results Urine drug screen results: THC-Marijuana, BRANDI-Cocaine, OXY-Oxycodone
--- NOTE | 2019-07-06 07:07 | PN ---
[facility] Progress Note Note: Patient's blood pressure this morning is B/P 169/109. Patient is asymtomatic Vital Signs Temperature 98.2 F 07/05/19 06:38 Pulse Rate 85 07/05/19 10:00 Respiratory Rate 18 07/06/19 03:30 Blood Pressure 169/109 07/06/19 07:00 O2 Sat by Pulse Oximetry (%) ACTION: Clonidine 0.1mg tablet oral order
[2019-07-06] MEDS ORDERED: cloNIDine HCL 0.1 MG TABLET PO ONE (08:15)
[2019-07-06] MEDS: PANTOPRAZOLE 20 MG TABLET (FP) PO SCH (09:08)
[2019-07-06] MEDS: ENALAPRIL MALEATE 10 MG TABLET (FP) PO SCH (09:08)
[2019-07-06] MEDS: PRENATAL VITAMINS W/ FOLIC ACID TABLET (FP) PO SCH (11:08)
[2019-07-06] MEDS: METHOCARBAMOL 500 MG TABLET PO PRN ×2 (14:59→23:06)
[2019-07-06] MEDS ORDERED: NAPROXEN 500 MG TABLET (FP) PO ONE (15:00)
[2019-07-06] MEDS: NAPROXEN 500 MG TABLET (FP) PO SCH (21:49)
[2019-07-06] MEDS: ATORVASTATIN CA 10 MG TABLET (FP) PO SCH (21:49)
[2019-07-06] MEDS: MELATONIN 5 MG TABLETS PO PRN (21:50)
[2019-07-06] MEDS: THIAMINE HCL 100 MG TABLET (FP) PO SCH (21:50)
[2019-07-06] MEDS: MIRTAZAPINE 15 MG TABLET (FP) PO SCH (21:50)
[2019-07-07] MEDS: PRENATAL VITAMINS W/ FOLIC ACID TABLET (FP) PO SCH (10:23)
[2019-07-07] MEDS: PANTOPRAZOLE 20 MG TABLET (FP) PO SCH (10:23)
[2019-07-07] MEDS: NAPROXEN 500 MG TABLET (FP) PO SCH ×2 (10:23→21:38)
[2019-07-07] MEDS: ENALAPRIL MALEATE 10 MG TABLET (FP) PO SCH (10:23)
[2019-07-07] MEDS: ATORVASTATIN CA 10 MG TABLET (FP) PO SCH (21:38)
[2019-07-07] MEDS: THIAMINE HCL 100 MG TABLET (FP) PO SCH (21:38)
[2019-07-07] MEDS: MIRTAZAPINE 15 MG TABLET (FP) PO SCH (21:38)
[2019-07-07] MEDS: METHOCARBAMOL 500 MG TABLET PO PRN (21:39)
[2019-07-07] MEDS: MELATONIN 5 MG TABLETS PO PRN (21:39)
[2019-07-07] MEDS: ACETAMINOPHEN 325 MG TABLET (FP) PO PRN (23:46)
[2019-07-08] MEDS: PANTOPRAZOLE 20 MG TABLET (FP) PO SCH (10:00)
[2019-07-08] MEDS: ENALAPRIL MALEATE 10 MG TABLET (FP) PO SCH (10:00)
[2019-07-08] MEDS: PRENATAL VITAMINS W/ FOLIC ACID TABLET (FP) PO SCH (10:00)
[2019-07-08] MEDS: NAPROXEN 500 MG TABLET (FP) PO SCH ×2 (10:00→21:39)
[2019-07-08] MEDS: ATORVASTATIN CA 10 MG TABLET (FP) PO SCH (21:39)
[2019-07-08] MEDS: THIAMINE HCL 100 MG TABLET (FP) PO SCH (21:40)
[2019-07-08] MEDS: MIRTAZAPINE 15 MG TABLET (FP) PO SCH (21:40)
[2019-07-08] MEDS: METHOCARBAMOL 500 MG TABLET PO PRN (21:42)
[2019-07-09] MEDS: PRENATAL VITAMINS W/ FOLIC ACID TABLET (FP) PO SCH (10:33)
[2019-07-09] MEDS: PANTOPRAZOLE 20 MG TABLET (FP) PO SCH (10:33)
[2019-07-09] MEDS: NAPROXEN 500 MG TABLET (FP) PO SCH ×2 (10:33→21:27)
[2019-07-09] MEDS: ENALAPRIL MALEATE 10 MG TABLET (FP) PO SCH (10:33)
--- NOTE | 2019-07-09 14:05 | PN ---
[facility] Progress Note Note: Mr Manuel is a pt referred to rehab after detoxing [facility] [address]. Hx of HTN and DM and wanted to be on regular diet. Reports he has a primary care provider, Dr. Suhail Jackson at [place], [place]. Vital Signs - 24 hr 07/09/19 07/09/19 07/09/19 00:30 03:30 07:18 Temperature 97.8 F Pulse Rate 84 Respiratory 18 18 18 Rate Blood Pressure 145/94 07/09/19 09:36 Temperature Pulse Rate 115 H Respiratory 18 Rate Blood Pressure 126/90 Laboratory Tests 07/03/19 07/04/19 07/06/19 07:00 07:38 06:57 POC Glucometer 125 112 120 07/07/19 07/08/19 07/09/19 06:54 07:31 07:04 POC Glucometer 107 100 91 A/P: Hx DM-controlled Pt seen by dietitian today and diet concerns discussed. Pt is agreeable to stay on GENET/NCS diet as directed.
[2019-07-09] MEDS: THIAMINE HCL 100 MG TABLET (FP) PO SCH (21:27)
[2019-07-09] MEDS: ATORVASTATIN CA 10 MG TABLET (FP) PO SCH (21:27)
[2019-07-09] MEDS: MIRTAZAPINE 15 MG TABLET (FP) PO SCH (21:28)
[2019-07-09] MEDS: MELATONIN 5 MG TABLETS PO PRN (21:28)
[2019-07-10] MEDS: PANTOPRAZOLE 20 MG TABLET (FP) PO SCH (10:14)
[2019-07-10] MEDS: PRENATAL VITAMINS W/ FOLIC ACID TABLET (FP) PO SCH (10:14)
[2019-07-10] MEDS: ENALAPRIL MALEATE 10 MG TABLET (FP) PO SCH (10:14)
[2019-07-10] MEDS: NAPROXEN 500 MG TABLET (FP) PO SCH ×2 (10:15→21:50)
[2019-07-10] MEDS: ATORVASTATIN CA 10 MG TABLET (FP) PO SCH (21:50)
[2019-07-10] MEDS: MIRTAZAPINE 15 MG TABLET (FP) PO SCH (21:50)
[2019-07-10] MEDS: MELATONIN 5 MG TABLETS PO PRN (21:52)
[2019-07-10] MEDS: METHOCARBAMOL 500 MG TABLET PO PRN (21:53)
[2019-07-10] MEDS: THIAMINE HCL 100 MG TABLET (FP) PO SCH (21:55)
[2019-07-11] MEDS: PANTOPRAZOLE 20 MG TABLET (FP) PO SCH (10:52)
[2019-07-11] MEDS: NAPROXEN 500 MG TABLET (FP) PO SCH ×2 (10:52→22:07)
[2019-07-11] MEDS: PRENATAL VITAMINS W/ FOLIC ACID TABLET (FP) PO SCH (10:53)
[2019-07-11] MEDS: ENALAPRIL MALEATE 10 MG TABLET (FP) PO SCH (12:29)
[2019-07-11] MEDS: MIRTAZAPINE 15 MG TABLET (FP) PO SCH (22:06)
[2019-07-11] MEDS: THIAMINE HCL 100 MG TABLET (FP) PO SCH (22:07)
[2019-07-11] MEDS: ATORVASTATIN CA 10 MG TABLET (FP) PO SCH (22:07)
[2019-07-11] MEDS: METHOCARBAMOL 500 MG TABLET PO PRN (22:09)
[2019-07-12] MEDS: PANTOPRAZOLE 20 MG TABLET (FP) PO SCH (10:23)
[2019-07-12] MEDS: NAPROXEN 500 MG TABLET (FP) PO SCH ×2 (10:23→21:42)
[2019-07-12] MEDS: PRENATAL VITAMINS W/ FOLIC ACID TABLET (FP) PO SCH (10:23)
[2019-07-12] MEDS: ENALAPRIL MALEATE 10 MG TABLET (FP) PO SCH (12:03)
[2019-07-12] MEDS: THIAMINE HCL 100 MG TABLET (FP) PO SCH (21:42)
[2019-07-12] MEDS: MIRTAZAPINE 15 MG TABLET (FP) PO SCH (21:42)
[2019-07-12] MEDS: ATORVASTATIN CA 10 MG TABLET (FP) PO SCH (21:42)
[2019-07-13] MEDS: PANTOPRAZOLE 20 MG TABLET (FP) PO SCH (10:45)
[2019-07-13] MEDS: ENALAPRIL MALEATE 10 MG TABLET (FP) PO SCH (10:45)
[2019-07-13] MEDS: PRENATAL VITAMINS W/ FOLIC ACID TABLET (FP) PO SCH (10:45)
[2019-07-13] MEDS: NAPROXEN 500 MG TABLET (FP) PO SCH ×2 (10:45→21:31)
[2019-07-13] MEDS: ATORVASTATIN CA 10 MG TABLET (FP) PO SCH (21:31)
[2019-07-13] MEDS: THIAMINE HCL 100 MG TABLET (FP) PO SCH (21:31)
[2019-07-13] MEDS: MIRTAZAPINE 15 MG TABLET (FP) PO SCH (21:31)
[2019-07-14] MEDS: PANTOPRAZOLE 20 MG TABLET (FP) PO SCH (10:19)
[2019-07-14] MEDS: ENALAPRIL MALEATE 10 MG TABLET (FP) PO SCH (10:19)
[2019-07-14] MEDS: NAPROXEN 500 MG TABLET (FP) PO SCH ×2 (10:19→21:33)
[2019-07-14] MEDS: PRENATAL VITAMINS W/ FOLIC ACID TABLET (FP) PO SCH (10:19)
--- NOTE | 2019-07-14 12:00 | PN ---
[facility] Progress Note Note: Patient is scheduled for discharged tomorrow. Scripts for 30 days supply of Remeron 7.5 mg/hs will be electronically transmitted to [facility] at [phone] [place] [address]
--- NOTE | 2019-07-14 12:46 | DS ---
[facility] Rehab Discharge Summary - [facility] Rehab Discharge Summary Admission Date: 07/02/19 Discharge Date: 07/15/19 - History Present History: Alcohol dependence, Cocaine dependence, Opioid dependence (RX PAIN-KILLERS OXYCODONE) Additional Comments: PT IS SCHEDULED FOR DISCHARGE TOMORROW. PT MET WITH HIS COUNSELOR AND WAS REFERRED TO AFTERCARE AT [facility] ON [address] [place], [place]. Pertinent Past History: HTN DM HLD GERD PTSD DEPRESSION ANXIETY DISORDER INSOMNIA - Discharge Physical Exam Vital Signs: Vital Signs Temperature 97.5 F L 07/13/19 06:58 Pulse Rate 94 H 07/14/19 10:00 Respiratory Rate 18 07/14/19 03:30 Blood Pressure 146/82 07/14/19 10:00 O2 Sat by Pulse Oximetry (%) Pertinent Admission Physical Exam Findings: Vital Signs - 24 hr 07/14/19 07/14/19 07/14/19 00:30 03:30 10:00 Pulse Rate 94 H Respiratory 18 18 Rate Blood Pressure 146/82 Laboratory Tests 07/03/19 07/04/19 07/06/19 07:00 07:38 06:57 POC Glucometer 125 112 120 07/07/19 07/08/19 07/09/19 06:54 07:31 07:04 POC Glucometer 107 100 91 07/10/19 07/11/19 07/12/19 07:28 07:20 07:02 POC Glucometer 104 97 89 07/13/19 07/14/19 06:57 06:31 POC Glucometer 102 99 LIMITED D/C P/E GENERAL:ALERT O X 3. NAD CARDIAC:S1 S2, RRR LUNGS:CTA, DELBERT. NO SOB ABDOMEN:SOFT,+BS, NT,ND EXTREMITIES/SKIN:NO EDEMA,NO CYANOSIS, NO LESIONS, FULL ROM - Treatment Discharge Condition: Discharge condition good Hospital Course: RESPONDED WELL AND REHABILITATED SAFELY - Medication Discharge Medications: Ambulatory Orders Omeprazole 20 mg PO DAILY 08/09/18 Atorvastatin Ca [Lipitor] 10 mg PO HS #30 tablet 08/13/18 Enalapril Maleate [Vasotec -] 10 mg PO DAILY 08/16/18 hydrOXYzine PAMOATE [Vistaril -] 25 mg PO HS 06/29/19 Mirtazapine [Remeron -] 7.5 mg PO HS #14 tablet 07/14/19 - Medication-Assisted Treatment (MAT) Medication-Assisted Treatment (MAT): No - Discharge Instructions Diet, activity, other medical instructions: Diet:LOW SALT, NO CONCENTRATED SWEETS Activity: TOLERATED Other medical instructions:FOLLOW UP WITH PCP- DR. ALEXANDER BERGER AT [facility] WITHIN 1 WEEK AFTER DISCHARGE. - Diagnosis (1) Alcohol dependence Current Visit: Yes Status: Chronic Qualifiers: Substance use status: uncomplicated Qualified Code(s): F10.20 - Alcohol dependence, uncomplicated (2) Cocaine dependence Current Visit: Yes Status: Chronic Qualifiers: Substance use status: uncomplicated Qualified Code(s): F14.20 - Cocaine dependence, uncomplicated (3) Diabetes Current Visit: Yes Status: Chronic Qualifiers: Diabetes mellitus type: type 2 Diabetes mellitus inter fold roll cutter insulin use: without mcfp use Diabetes mellitus complication status: with hyperglycemia Qualified Code(s): E11.65 - Type 2 diabetes mellitus with hyperglycemia (4) GERD (gastroesophageal reflux disease) Current Visit: Yes Status: Chronic Qualifiers: Esophagitis presence: esophagitis presence not specified Qualified Code(s) : K21.9 - Gastro-esophageal reflux disease without esophagitis (5) HLD (hyperlipidemia) Current Visit: Yes Status: Chronic Qualifiers: Hyperlipidemia type: unspecified Qualified Code(s): E78.5 - Hyperlipidemia , unspecified (6) HTN (hypertension) Current Visit: Yes Status: Chronic Qualifiers: Hypertension type: unspecified Qualified Code(s): I10 - Essential (primary ) hypertension - AMA Did Patient Leave Against Medical Advice: No Additional Comments: FOLLOW UP WITH CD AFTERCARE AT [facility]ARE. PT REPORTS HE HAS OWN MEDS AND WILL FOLLOW UP WITH PCP FOR MORE REFILLS IF NEEDED.
[2019-07-14] MEDS: ATORVASTATIN CA 10 MG TABLET (FP) PO SCH (21:32)
[2019-07-14] MEDS: THIAMINE HCL 100 MG TABLET (FP) PO SCH (21:33)
[2019-07-14] MEDS: MIRTAZAPINE 15 MG TABLET (FP) PO SCH (21:33)
[2019-07-15 06:42] VITALS: BP 166/96; PULSE 90; TEMP 97.4
[2019-07-15] MEDS: PANTOPRAZOLE 20 MG TABLET (FP) PO SCH (09:46)
[2019-07-15] MEDS: NAPROXEN 500 MG TABLET (FP) PO SCH (09:46)
[2019-07-15] MEDS: ENALAPRIL MALEATE 10 MG TABLET (FP) PO SCH (09:46)
[2019-07-15] MEDS: PRENATAL VITAMINS W/ FOLIC ACID TABLET (FP) PO SCH (09:46)
== END 2019-07-15 10:00 | disposition home or self-care (01) | DRG 772 ==
LOC: YASAS 17:37 → Y5N 17:41
PROVIDERS: ADMIT Neuromusculoskeletal Medicine & OMM; ATTEND Neuromusculoskeletal Medicine & OMM
PROC: HZ42ZZZ Group Counseling for Substance Abuse Treatment, Cognitive-Behavioral (ICD-10-PCS; principal; 2019-07-02)
DX: F10.20 Alcohol dependence, uncomplicated (principal); F14.20 Cocaine dependence, uncomplicated; I10 Essential (primary) hypertension; E11.65 Type 2 diabetes mellitus with hyperglycemia; K21.9 Gastro-esophageal reflux disease without esophagitis; E78.5 Hyperlipidemia, unspecified
CPT/HCPCS: 82962; J0735